=== PATIENT | male | born 1980 | race Hispanic/Latino ===

== ENCOUNTER 2022-12-03 10:47 | Inpatient (IN) | payer OTHER ==
[~2022-12-03] VITALS: Ht 177.8 cm; Wt 113.4 kg
[2022-12-03 11:12] LABS: APPEARANCE,URINE CLEAR (CLEAR); BILIRUBIN,URINE NEGATIVE (NEGATIVE); COLOR,URINE YELLOW (YELLOW); GLUCOSE, URINE (UA) NEGATIVE (NEGATIVE); KETONES,URINE NEGATIVE (NEGATIVE); LEUKOCYTE ESTERASE ,URINE NEGATIVE Leu/uL (NEGATIVE); NITRATE,URINE NEGATIVE (NEGATIVE); OCCULT BLOOD,URINE NEGATIVE (NEGATIVE); PROTEIN,URINE 20 mg/dL (NEGATIVE); UROBILINOGEN,URINE 12 mg/dL (0.2-1.0)
[2022-12-03 11:15] LABS: MUCUS,URINE RARE LPF (None Seen); RBC,URINE 0-1 /HPF (0-1); SQUAMOUS EPITHELIAL CELL,UR RARE /HPF (0-2)
[2022-12-03 11:55] LABS: BASOPHILS % (AUTO) 0.8 % (0.0-5.0); EOSINOPHILS % (AUTO) 2.4 % (0.0-8.0); HEMATOCRIT 43.9 % (42-54); LYMPHOCYTES % (AUTO) 19.9 % (21.0-51.0); MEAN CORPUSCULAR HEMOGLOBIN 32.1 pg (27.0-33.0); MEAN CORPUSCULAR HGB CONC 33.5 g/dL (32.0-36.0); MEAN CORPUSCULAR VOLUME 95.9 fL (79-99); MONOCYTES % (AUTO) 9.1 % (3.0-13.0); NEUTROPHILS % (AUTO) 67.5 % (40.0-77.0); PLATELET COUNT (AUTO) 181 K/uL (130-400); RED BLOOD CELL COUNT(AUTO) 4.58 MIL/uL (4.50-6.20); RED CELL DISTRIBUTION WIDTH 13.3 % (11.0-15.5); WHITE BLOOD COUNT (AUTO) 7.9 K/uL (4.8-10.8)
[2022-12-03 12:13] LABS: CREATININE 0.8 mg/dL (0.5-1.5); POTASSIUM 4.1 mmol/L (3.5-5.1)
[2022-12-03 12:17] LABS: ALBUMIN 3.9 g/dL (3.5-5.0); TOTAL PROTEIN, SERUM 8.5 g/dL (6.0-8.3)
[2022-12-03] MEDS ORDERED: 0.9%NACL 1000ML 1,000 ML IV ONE (12:30)
[2022-12-03] MEDS ORDERED: IOHEXOL 350 MG/ML 100ML INFUS..BTL IV ONE (13:06)
[2022-12-03] MEDS ORDERED: 0.9%NACL 50ML IV SCH (14:30)
[2022-12-03] MEDS: ZOSYN 3.375GM +NS 50ML IVPB SCH ×2 (14:37→23:00)
[2022-12-03] MEDS ORDERED: KETOROLAC 15MG/ML VIAL (15MG/ML) IV PRN (15:00)
[2022-12-03] MEDS ORDERED: MORPHINE 2 MG SYG IVP PRN (15:00)
[2022-12-03 15:08] LABS: HEMOGLOBIN A1C 5.9 % (4.0-6.0)
[2022-12-03] MEDS: 0.9%NACL 1000ML 1,000 ML IV SCH (15:11)
[2022-12-03] MEDS: FAMOTIDINE 20MG VIAL IV SCH (20:58)
[2022-12-03 22:26] LABS: AMPHET/METH SCREEN,URINE NEGATIVE (NEGATIVE); BARBITURATE SCREEN, URINE NEGATIVE (NEGATIVE); BENZODIAZEPINES SCREEN,URINE NEGATIVE (NEGATIVE); CANNABINOID SCREEN,URINE POSITIVE (NEGATIVE); COCAINE SCREEN,URINE NEGATIVE (NEGATIVE); OPIATE SCREEN,URINE NEGATIVE (NEGATIVE); PHENCYCLIDINE SCREEN,URINE NEGATIVE (NEGATIVE)
[2022-12-04] MEDS: 0.9%NACL 1000ML 1,000 ML IV SCH ×3 (01:00→22:32)
[2022-12-04 03:22] VITALS: BP 123/65
[2022-12-04 05:16] LABS: BASOPHILS % (AUTO) 0.7 % (0.0-5.0); EOSINOPHILS % (AUTO) 2.8 % (0.0-8.0); HEMATOCRIT 41.1 % (42-54); LYMPHOCYTES % (AUTO) 22.5 % (21.0-51.0); MEAN CORPUSCULAR HEMOGLOBIN 32.6 pg (27.0-33.0); MEAN CORPUSCULAR HGB CONC 33.3 g/dL (32.0-36.0); MEAN CORPUSCULAR VOLUME 97.9 fL (79-99); MONOCYTES % (AUTO) 9.3 % (3.0-13.0); NEUTROPHILS % (AUTO) 64.6 % (40.0-77.0); PLATELET COUNT (AUTO) 159 K/uL (130-400); RED CELL DISTRIBUTION WIDTH 13.1 % (11.0-15.5); WHITE BLOOD COUNT (AUTO) 6.9 K/uL (4.8-10.8)
[2022-12-04 05:37] LABS: CREATININE 0.9 mg/dL (0.5-1.5); CRP QUANTITATIVE 36.4 mg/L (0.00-9.0); POTASSIUM 3.9 mmol/L (3.5-5.1)
[2022-12-04] MEDS: ZOSYN 3.375GM +NS 50ML IVPB SCH ×3 (06:22→22:30)
[2022-12-04 08:00] VITALS: BP 107/71
[2022-12-04] MEDS: FAMOTIDINE 20MG VIAL IV SCH ×2 (08:22→22:17)
[2022-12-04] MEDS ORDERED: CHLORDIAZEPOXIDE HCL 25 MG CAP PO PRN (11:30)
[2022-12-04] MEDS ORDERED: LORAZEPAM 2 MG/ML 1 ML VIAL IVP PRN (11:30)
[2022-12-04] MEDS ORDERED: PHARMACY COMMUNICATION MISC PRN (11:30)
[2022-12-04] MEDS: FLUCONAZOLE 200 MG/NS 100 ML 100 ML IV SCH (11:42)
[2022-12-04 12:02] VITALS: BP 145/76
[2022-12-04 16:00] VITALS: BP 123/78
[2022-12-04 19:59] VITALS: BP 144/82
[2022-12-05] VITALS (7 sets, daily range): BP systolic 120–145; BP diastolic 64–85
[2022-12-05 05:47] LABS: BASOPHILS % (AUTO) 0.8 % (0.0-5.0); EOSINOPHILS % (AUTO) 3.7 % (0.0-8.0); HEMATOCRIT 42.3 % (42-54); LYMPHOCYTES % (AUTO) 27.9 % (21.0-51.0); MEAN CORPUSCULAR HEMOGLOBIN 32.5 pg (27.0-33.0); MEAN CORPUSCULAR HGB CONC 33.6 g/dL (32.0-36.0); MEAN CORPUSCULAR VOLUME 96.8 fL (79-99); NEUTROPHILS % (AUTO) 57.6 % (40.0-77.0); PLATELET COUNT (AUTO) 163 K/uL (130-400); RED BLOOD CELL COUNT(AUTO) 4.37 MIL/uL (4.50-6.20); RED CELL DISTRIBUTION WIDTH 12.6 % (11.0-15.5); WHITE BLOOD COUNT (AUTO) 6.4 K/uL (4.8-10.8)
[2022-12-05 06:09] LABS: ALBUMIN 3.3 g/dL (3.5-5.0); CRP QUANTITATIVE 22.7 mg/L (0.00-9.0); MAGNESIUM 2.3 mg/dL (1.80-2.40); TOTAL PROTEIN, SERUM 7.7 g/dL (6.0-8.3)
[2022-12-05] MEDS: ZOSYN 3.375GM +NS 50ML IVPB SCH ×3 (06:38→22:48)
[2022-12-05] MEDS: 0.9%NACL 1000ML 1,000 ML IV SCH ×2 (06:44→17:02)
[2022-12-05] MEDS: FAMOTIDINE 20MG VIAL IV SCH ×2 (08:27→21:55)
[2022-12-05] MEDS: FLUCONAZOLE 200 MG/NS 100 ML 100 ML IV SCH (12:01)
[2022-12-05] MEDS: HEPARIN 5,000 UNIT VIAL SQ SCH (22:48)
[2022-12-06 03:54] VITALS: BP 126/66
[2022-12-06] MEDS: 0.9%NACL 1000ML 1,000 ML IV SCH (04:03)
[2022-12-06 05:14] LABS: BASOPHILS % (AUTO) 1.1 % (0.0-5.0); HEMATOCRIT 40.8 % (42-54); LYMPHOCYTES % (AUTO) 33.3 % (21.0-51.0); MEAN CORPUSCULAR HEMOGLOBIN 32.5 pg (27.0-33.0); MEAN CORPUSCULAR HGB CONC 33.8 g/dL (32.0-36.0); MEAN CORPUSCULAR VOLUME 96.2 fL (79-99); MONOCYTES % (AUTO) 9.2 % (3.0-13.0); NEUTROPHILS % (AUTO) 52.1 % (40.0-77.0); PLATELET COUNT (AUTO) 183 K/uL (130-400); RED BLOOD CELL COUNT(AUTO) 4.24 MIL/uL (4.50-6.20); RED CELL DISTRIBUTION WIDTH 12.8 % (11.0-15.5); WHITE BLOOD COUNT (AUTO) 6.6 K/uL (4.8-10.8)
[2022-12-06 05:27] LABS: CREATININE 1.1 mg/dL (0.5-1.5); MAGNESIUM 2.2 mg/dL (1.80-2.40); POTASSIUM 3.5 mmol/L (3.5-5.1)
[2022-12-06] MEDS: ZOSYN 3.375GM +NS 50ML IVPB SCH (06:20)
[2022-12-06] MEDS ORDERED: DIATR MEGLU/DIATRIZOATE SODIUM 30 ML BOTTLE ONE (07:29)
[2022-12-06 08:00] VITALS: BP 137/89
[2022-12-06] MEDS: HEPARIN 5,000 UNIT VIAL SQ SCH (09:51)
[2022-12-06] MEDS: FAMOTIDINE 20MG VIAL IV SCH (09:52)
[2022-12-06 12:00] VITALS: BP 139/86
[2022-12-06] MEDS: FLUCONAZOLE 200 MG/NS 100 ML 100 ML IV SCH (13:00)
[2022-12-06] MEDS ORDERED: IOHEXOL 350 MG/ML 100ML INFUS..BTL IV ONE (13:04)
== END 2022-12-06 16:55 | disposition left against medical advice (07) | DRG 379 ==
LOC: EDH 10:47 → EDHIP 10:48 → UNDOADMIN 14:41 → EDHIP 14:41 → 3CH 12-04 03:21
PROVIDERS: ADMIT Internal Medicine; ATTEND Internal Medicine
DX: K57.33 Diverticulitis of large intestine without perforation or abscess with bleeding (principal); E66.09 Other obesity due to excess calories; Z53.29 Procedure and treatment not carried out because of patient's decision for other reasons; Z68.35 Body mass index [BMI] 35.0-35.9, adult
CPT/HCPCS: 36415; 74021; 74177; 80048; 80053; 80305; 81001; 83036; 83690; 83735; 84145; 85025; 86140; G0378; J1450; J1644; J1885; J2543; J3490; J7030; Q9963; Q9967

== ENCOUNTER 2024-08-14 18:58 | Inpatient (IN) | payer SELFPAY ==
[~2024-08-14] VITALS: Ht 177.8 cm; Wt 106.1 kg
--- NOTE | 2024-08-14 19:35 | ERN ---
ED Note History of Present Illness Stated Complaint: ABDOMINAL PAIN Time Seen by MD: 18:59 Time Seen by Midlevel: 18:59 Dictation: The patient is a 43-year-old male with history of diverticulitis who presents to the emergency department with complaints of lower abdominal pain, nausea, nonbloody vomiting Tuesday. Patient denies any fevers but reports chills. Patient also reports occasional cough Allergies: Uncoded Allergies: UNKNOWN LIDOCAINE SPRAY (Allergy, Unknown, 12/03/22) Past Medical History Past Medical History: No Pertinent History Surgical History: None RN Note Reviewed/Agreed w/PFSH: Yes Review of System Dictation Constitutional: Negative for fever,chills, and weight loss Eyes: Negative for injury, pain,redness, and discharge ENT: Negative for injury,pain or swelling Cardiovascular: Negative for chest pain, palpitations, and edema Respiratory: Negative for shortness of breath, cough, and wheezing, Abdomen/GI: Negative for , and constipation positive for abdominal pain, nausea, vomiting, diarrhea Back: Negative for injury and pain : Negative for injury, bleeding and discharge MS/Extremity: Negative for injury and deformity Skin: Negative for rash, and discoloration Neuro: Negative for headache, weakness, numbness, tingling, and seizure Psych: Negative for suicide ideation, homicidal ideation, and hallucinations Initial Vital Sign VS Vital Signs Date Time Temp Pulse Resp B/P (MAP) Pulse Ox O2 Delivery O2 Flow Rate FiO2 08/14/24 19:48 98.2 110 20 114/83 97 Room Air 08/15/24 00:39 0 21 Physical Exam Dictation Vital Signs reviewed General Appearance: Alert, oriented x 3, no acute distress, well developed, nourished. Head and Face: non-traumatic. Eyes: PERRL, pink conjunctivas, eyelid no trauma, anterior chamber with arcus senilis. Ears: Pinnas intact and no signs of trauma or erythema ear canals clear and no discharge TM no erythema Nose: No discharge, no bleeding. Oropharynx: Mouth normal, tongue pink. pharynx clear,no erythema, tonsils no exudates, no abscesses noted, mucous membrane moist Neck: Supple, non-tender, no thyromegaly, no masses, no JVD, no bruits Breast:Deferred Chest:No tenderness, no crepitus, no paradoxical movement, no retractions Lungs:Clear, well-ventilated, symmetric, no rales, no wheezing, no rhonchi, no stridor, good breath sounds bilaterally Heart: Regular rate, regular rhythm, no murmur, no gallops Vascular: no peripheral edema, Abdomen: Soft, positive bowel sounds, nondistended, no guarding, Suprapubic tenderness no rebound, no masses no hepatomegaly, no splenomegaly, no Mora's sign, no hernias. Rectal: Deferred Genital: Deferred Neurological: Normal speech, motor function intact, sensory function intact Musculoskeletal: Neck nontender, full range of motion, back nontender, full range of motion, Extremities: nontender, full range of motion Skin: Color pink, dry, no turgor, no rash, no lacerations, no abrasions, no contusions. Lymphatic: Deferred Results (Laboratory/Radiology) Laboratory/Radiology Laboratory Tests Test 08/14/24 20:28 08/15/24 00:24 08/15/24 02:11 White Blood Count 9.2 K/uL (4.8-10.8) Red Blood Count 4.90 MIL/uL (4.50-6.20) Hemoglobin 15.9 g/dL (14.0-18.0) Hematocrit 45.8 % (42-54) Mean Corpuscular Volume 93.5 fL (79-99) Mean Corpuscular Hemoglobin 32.4 pg (27.0-33.0) Mean Corpuscular Hemoglobin Concent 34.7 g/dL (32.0-36.0) Red Cell Distribution Width 13.7 % (11.0-15.5) Platelet Count 195 K/uL (130-400) Mean Platelet Volume 11.3 fL (7.5-10.5) H Immature Granulocyte % (Auto) 0.5 % (0-1) Neutrophils (%) (Auto) 80.2 % (40.0-77.0) H Lymphocytes (%) (Auto) 10.0 % (21.0-51.0) L Monocytes (%) (Auto) 9.2 % (3.0-13.0) Eosinophils (%) (Auto) 0.0 % (0.0-8.0) Basophils (%) (Auto) 0.1 % (0.0-5.0) Neutrophils # (Auto) 7.4 K/uL (1.8-7.7) Lymphocytes # (Auto) 0.9 K/uL (1.0-4.8) L Monocytes # (Auto) 0.8 K/uL (0.1-1.0) Eosinophils # (Auto) 0.00 K/uL (0.00-0.70) Basophils # (Auto) 0.01 K/uL (0.00-0.20) Absolute Immature Granulocyte (auto 0.05 K/uL (0-1) Nucleated Red Blood Cells 0.0 % (0.0-0.19) White Cell Morphology Comment See comments Sodium Level 127 mmol/L (136-145) L Potassium Level 3.4 mmol/L (3.5-5.1) L Chloride Level 90 mmol/L (101-111) *L Carbon Dioxide Level 25 mmol/L (21-32) Blood Urea Nitrogen 24 mg/dL (7-18) H Creatinine 1.4 mg/dL (0.5-1.3) H Glomerular Filtration Rate Calc 65 mL/min (>90) Random Glucose 115 mg/dL (70-105) H Total Calcium 9.3 mg/dL (8.5-10.1) Total Bilirubin 1.1 mg/dL (0.2-1.0) H Direct Bilirubin 0.4 mg/dL (0.0-0.3) H Aspartate Amino Transf (AST/SGOT) 34 U/L (10-37) Alanine Aminotransferase (ALT/SGPT) 35 U/L (12-78) Alkaline Phosphatase 123 U/L (50-136) Total Protein 9.9 g/dL (6.0-8.3) H Albumin 3.8 g/dL (3.5-5.0) Lipase 34 U/L (16-77) Influenza Type A Antigen Negative For Type A Influenza Type B Antigen Negative For Type B SARS-CoV-2 Antigen (Rapid) PRESUMPTIVE NEGATIVE Lactic Acid Level 1.1 mmol/L (0.8-2.5) REASON: lower abd pain ORDERING PHYSICIAN: STAN RODRIGUEZ PROCEDURE: ABD PEL W - CT ABDOMEN/PELVIS W/CONTRAST CT ABDOMEN/PELVIS W/CONTRAST HISTORY: Lower abdominal pain COMPARISON: 12/06/2022 TECHNIQUE: Multiple sequential axial images of the abdomen and pelvis were obtained from the dome of the diaphragm through symphysis pubis. Patient was given 100 cc of Omnipaque through intravenous route. Oral contrast was not given. FINDINGS: No pleural effusion is seen bilaterally. There is no evidence of parenchymal disease or pulmonary nodule of the visualized lower lungs. Degenerative changes of the thoracolumbar spine are present. The heart is not enlarged. Liver is enlarged with fatty changes measuring 21 cm. The liver, spleen, adrenal glands and pancreas are unremarkable. There is no evidence of hydronephrosis bilaterally. No evidence of renal stone is seen. There is diverticulosis. There is sigmoid colon wall thickening with adjacent fat stranding suspicious for acute diverticulitis. Extensive phlegmon collection is seen. There may be small abscess collection versus walled off perforation in the pelvis measuring 4.4 x 4.3 cm. Fecal material is seen in the colon. There are normal size retroperitoneal and mesenteric lymph nodes. No ascites is seen. Atherosclerotic changes are present. Pelvic sidewalls are symmetric bilaterally. Bladder is moderately distended with apparent wall thickening. IMPRESSION: 1. There is diverticulosis. There is sigmoid colon wall thickening with adjacent fat stranding suspicious for acute diverticulitis. Extensive phlegmon collection is seen. There may be small abscess collection versus walled off perforation with tiny air collection in the pelvis measuring 4.[address] was performed with one or more following dose reduction techniques: automated exposure control, adjustment of the mA and kv according to patient's size, or use of a iterative reconstruction technique. REASON: cough ORDERING PHYSICIAN: STAN RODRIGUEZ PROCEDURE: CXR1VW - CHEST 1VW PORTABLE CHEST RADIOGRAPH INDICATION: cough COMPARISON: 07/31/2013 FINDINGS: Heart size is normal. The pulmonary vascularity and olesya appear normal. No abnormal pulmonary parenchymal opacity or consolidation identified. No significant pleural effusion noted. No pneumothorax detected. IMPRESSION: No radiographic evidence for any acute cardiopulmonary process. Labs Reviewed?: Yes ED Course ED Course Orders Procedure Category Date Status Time Cbc With Differential LAB 08/14/24 Complete 19:28 Urinalysis Profile LAB 08/14/24 Logged 19:28 Lipase LAB 08/14/24 Complete 19:28 Basic Metabolic Panel LAB 08/14/24 Complete 19:28 Hepatic Function Panel LAB 08/14/24 Complete 19:28 0.9%Nacl 1000ml (Ns PHA 08/14/24 Complete 1000ml) 19:30 Morphine 4mg Syg PHA 08/14/24 Complete (Morphine 4mg Syg) 19:30 Ondansetron 4mg Inj PHA 08/14/24 Complete (Zofran 4mg Inj) 19:30 Chest 1vw RAD 08/14/24 Resulted 19:28 Covid19 (Sars Antigen LAB 08/14/24 Complete Rapid) 19:28 Influenza Type A & B, LAB 08/14/24 Complete Rapid 19:28 Ct Abdomen/Pelvis CT 08/14/24 Resulted W/Contrast 21:13 Ondansetron 4mg Inj PHA 08/15/24 Complete (Zofran 4mg Inj) 00:23 0.9%Nacl 1000ml (Ns PHA 08/15/24 Complete 1000ml) 00:23 Morphine 4mg Syg PHA 08/15/24 Complete (Morphine 4mg Syg) 00:24 Iohexol (Omnipaque) PHA 08/15/24 Complete 01:14 Blood Cult MARK 08/15/24 In Process 02:03 Lactic Acid LAB 08/15/24 Complete 02:03 Zosyn 3.375gm+Ns 50ml PHA 08/15/24 Complete (Zosyn 3.375gm+Ns 02:30 Vancomycin 1g/250ml PHA 08/15/24 Complete Kit (Vancomycin 1g/2 02:30 Current Medications Medications (Trade) Dose Ordered Sig/Bernarda Route PRN Reason Start Time Stop Time Status Last Admin Dose Admin Iohexol (Omnipaque) 35,000 mg STK-MED ONCE IV 08/15/24 01:14 08/15/24 01:14 DC Morphine Sulfate (morPHINE 4MG SYG) 4 mg ONCE ONCE IVP 08/14/24 19:30 08/14/24 19:31 DC 08/15/24 00:39 Morphine Sulfate (morPHINE 4MG SYG) 4 mg STK-MED ONCE .ROUTE 08/15/24 00:24 08/15/24 00:24 DC Ondansetron HCl (zoFRAN 4MG INJ) 4 mg ONCE ONCE IVP 08/14/24 19:30 08/14/24 19:31 DC 08/15/24 00:39 Ondansetron HCl (zoFRAN 4MG INJ) 4 mg STK-MED ONCE .ROUTE 08/15/24 00:23 08/15/24 00:24 DC Piperacillin Sod/ Tazobactam Sod (Zosyn 3.375gm+NS 50ml) 3.375 gm ONCE ONCE IV 08/15/24 02:30 08/15/24 02:31 DC 08/15/24 02:22 Sodium Chloride 1,000 ml @ 0 mls/hr ONCE ONCE IV 08/14/24 19:30 08/14/24 19:31 DC 08/15/24 00:39 Sodium Chloride 1,000 ml @ As Directed STK-MED ONCE IV 08/15/24 00:23 08/15/24 00:24 DC Vancomycin HCl 250 ml @ 125 mls/hr ONCE ONCE IV 08/15/24 02:30 08/15/24 02:16 DC Vital Signs Date Time Temp Pulse Resp B/P (MAP) Pulse Ox O2 Delivery O2 Flow Rate FiO2 08/15/24 02:26 99.3 96 Room Air* 0 21 08/15/24 01:40 92 20 129/85 95 Room Air* 0 21 08/15/24 00:39 100.2 96 18 113/82 96 Room Air* 0 21 08/14/24 19:48 98.2 110 20 114/83 97 Room Air Medical Decision Making MDM MDM: The patient is a 43-year-old male with history of diverticulitis who presents to the emergency department with complaints of lower abdominal pain, nausea, nonbloody vomiting Tuesday. Patient denies any fevers but reports chills. Patient also reports occasional cough CBC showed no leukocytosis, no anemia, chemistry showed hyponatremia, hypochloremia, hypokalemia, GFR of 65, elevated total bilirubin, serology negative. CT abdomen showed suspicion for acute diverticulitis. Extensive phlegmon collection is seen with possible small abscess collection versus while the perforation with tiny air collection in the pelvis measuring 4.4 x 4.3 cm. Case discussed with general surgery Dr. Aaron who with the time request for admission to hospital in start patient on antibiotics. Differential diagnosis: Viral gastroenteritis, COVID-19 infection, appendicitis, electrolyte imbalance Comorbidities: Diverticulitis Tests considered and not ordered secondary to shared decision making include: none Previous outside records reviewed: none Risk of complication and/or morbidity or mortality of patient management: The patient meets criteria for admission. Need for emergency major/minor surgery: No There are no social concerns with this patient. I independently interpreted the tests I ordered (labs, urinalysis, etc.). I discussed the case with the hospitalist for admission. Tobias who accepts admission I discussed the case with the following specialists: Historian: pateint. I independently interpreted imaging studies and EKGs that I ordered (US, CT, XR, EKG, etc.). External chart review: none. Medical management and examination interpretation discussions were had by me with other qualified healthcare professionals as indicated for the patient's c are. DX & DISP Disposition: Inpatient Decision to Admit Date: Aug 15, 2024 Decision to Admit Time: 02:59 Departure Impression: Primary Impression: Diverticulitis Additional Impressions: Abdominal pain, Nausea and vomiting, Hyponatremia, Hypochloremia, Acute kidney injury, Dehydration Condition: Stable Referrals: SELF,REFERRAL (PCP) I have reviewed the case, and I agree with, Diagnosis and Plan STAN RODRIGUEZ ASSISTANT SPA DIRECTOR Aug 14, 2024 19:35
--- NOTE | 2024-08-14 19:59 | HMCIMG ---
PORTABLE CHEST RADIOGRAPH INDICATION: cough COMPARISON: 07/31/2013 FINDINGS: Heart size is normal. The pulmonary vascularity and olesya appear normal. No abnormal pulmonary parenchymal opacity or consolidation identified. No significant pleural effusion noted. No pneumothorax detected. IMPRESSION: No radiographic evidence for any acute cardiopulmonary process.
[2024-08-14 20:51] LABS: BASOPHILS # (AUTO) 0.01 K/uL (0.00-0.20); BASOPHILS % (AUTO) 0.1 % (0.0-5.0); HEMATOCRIT 45.8 % (42-54); IMMATURE GRANULOCYTE ABSOLUTE 0.05 K/uL (0-1); LYMPHOCYTES # (AUTO) 0.9 K/uL (1.0-4.8); MEAN CORPUSCULAR HEMOGLOBIN 32.4 pg (27.0-33.0); MEAN CORPUSCULAR HGB CONC 34.7 g/dL (32.0-36.0); MEAN CORPUSCULAR VOLUME 93.5 fL (79-99); MONOCYTES # (AUTO) 0.8 K/uL (0.1-1.0); MONOCYTES % (AUTO) 9.2 % (3.0-13.0); NEUTROPHILS # (AUTO) 7.4 K/uL (1.8-7.7); NEUTROPHILS % (AUTO) 80.2 % (40.0-77.0); PLATELET COUNT (AUTO) 195 K/uL (130-400); RED CELL DISTRIBUTION WIDTH 13.7 % (11.0-15.5); WHITE BLOOD COUNT (AUTO) 9.2 K/uL (4.8-10.8)
[2024-08-14 21:07] LABS: ALBUMIN 3.8 g/dL (3.5-5.0); BILIRUBIN,DIRECT 0.4 mg/dL (0.0-0.3); BILIRUBIN,TOTAL 1.1 mg/dL (0.2-1.0); CREATININE 1.4 mg/dL (0.5-1.3); POTASSIUM 3.4 mmol/L (3.5-5.1); TOTAL PROTEIN, SERUM 9.9 g/dL (6.0-8.3)
--- NOTE | 2024-08-15 00:20 | NUR ---
ASSUMED PT CARE AT THIS TIME
[2024-08-15] MEDS: 0.9%NACL 1000ML 1,000 ML IV ONE ×2 (00:39→01:47)
[2024-08-15] MEDS: ondanSETRON 4MG INJ IVP ONE (00:39)
[2024-08-15] MEDS: morPHINE 4 MG SYG IVP ONE (00:39)
[2024-08-15 01:14] LABS: INFLUENZA TYPE A Negative For Type A (NEGATIVE); INFLUENZA TYPE B Negative For Type B (NEGATIVE)
[2024-08-15] MEDS ORDERED: IOHEXOL 350 MG/ML 100ML INFUS..BTL IV ONE (01:14)
[2024-08-15 01:15] LABS: COVID19 (SARS ANTIGEN RAPID) PRESUMPTIVE NEGATIVE (NEGATIVE)
[2024-08-15] MEDS: ondanSETRON 4MG INJ ONE (01:47)
[2024-08-15] MEDS: morPHINE 4 MG SYG ONE (01:47)
--- NOTE | 2024-08-15 01:54 | HMCIMG ---
CT ABDOMEN/PELVIS W/CONTRAST HISTORY: Lower abdominal pain COMPARISON: 12/06/2022 TECHNIQUE: Multiple sequential axial images of the abdomen and pelvis were obtained from the dome of the diaphragm through symphysis pubis. Patient was given 100 cc of Omnipaque through intravenous route. Oral contrast was not given. FINDINGS: No pleural effusion is seen bilaterally. There is no evidence of parenchymal disease or pulmonary nodule of the visualized lower lungs. Degenerative changes of the thoracolumbar spine are present. The heart is not enlarged. Liver is enlarged with fatty changes measuring 21 cm. The liver, spleen, adrenal glands and pancreas are unremarkable. There is no evidence of hydronephrosis bilaterally. No evidence of renal stone is seen. There is diverticulosis. There is sigmoid colon wall thickening with adjacent fat stranding suspicious for acute diverticulitis. Extensive phlegmon collection is seen. There may be small abscess collection versus walled off perforation in the pelvis measuring 4.4 x 4.3 cm. Fecal material is seen in the colon. There are normal size retroperitoneal and mesenteric lymph nodes. No ascites is seen. Atherosclerotic changes are present. Pelvic sidewalls are symmetric bilaterally. Bladder is moderately distended with apparent wall thickening. IMPRESSION: 1. There is diverticulosis. There is sigmoid colon wall thickening with adjacent fat stranding suspicious for acute diverticulitis. Extensive phlegmon collection is seen. There may be small abscess collection versus walled off perforation with tiny air collection in the pelvis measuring 4.[address] was performed with one or more following dose reduction techniques: automated exposure control, adjustment of the mA and kv according to patient's size, or use of a iterative reconstruction technique.
[2024-08-15] MEDS: ZOSYN 3.375GM +NS 50ML IV ONE (02:22)
[2024-08-15] MEDS ORDERED: VANCOMYCIN 1G/250ML KIT 250 ML IV ONE (02:30)
--- NOTE | 2024-08-15 02:50 | NUR ---
GLENNY HONING MACHINE SET UP OPERATOR TOOL AT BEDSIDE
[2024-08-15] MEDS ORDERED: ondanSETRON 4MG INJ IV PRN (03:30)
[2024-08-15] MEDS ORDERED: acetaMINOPHEN 650 MG SUPPOSITORY RC PRN (03:30)
[2024-08-15] MEDS ORDERED: hydrALAZine 20MG/ML VIAL IV PRN (03:30)
--- NOTE | 2024-08-15 03:31 | HP ---
History of Present Illness Reason for Visit: Abdominal pain History of Present Illness Mr. Pate is a 43-year-old male that was seen and examined today on 08/15/2024. Patient is a good historian and personal health. Patient states that he came to the emergency department with a chief complaint of abdominal pain. Onset was 08/12/2024. Location is to bilateral lower quadrants. Duration is on and off. Character is described as sharp pain. Symptoms are aggravated with coughing. There was no alleviating factors. Patient reports associated nausea, vomiting, diarrhea. Today in the emergency department CBC unremarkable, sodium 127, potassium 3.4, chloride 90, BUN 24, creatinine 1.4, influenza negative, COVID negative, CT of abdomen and pelvis shows diverticulosis, there is sigmoid colon wall thickening with adjacent fat stranding suspicious for acute diverticulitis. Extensive phlegmon collection is seen. There may be a small abscess collection versus walled-off perforation with tiny air collection in the pelvis measuring 4.4 x 4.3 cm. Emergency room physician contacted general surgeon on-call who recommended patient be admitted under hospitalist service. Past Medical History Patient History: Asthma SON, Onset:Childhood ADDITIONAL PAST MEDICAL HISTORY: [Denies] SOCIAL HISTORY: [Negative for smoking, patient drinks alcohol 2 times a week usually two beers that are 24 oz each. Patient denies drug use. Patient lives with his mom Alison Pate. Patient has poor access to health care due to lack of health insurance. Patient denies difficulty pain is bills. Patient is typically independent of all his ADLs. 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 Dyspnea, Edema, Lt Headedness, Other Gastrointestinal: Nausea, Vomiting, Abdominal Pain, Diarrhea; No: Constipation, Melena, Hematochezia, Other Genitourinary: No Dysuria, No Frequency, No Incontinence, No Hematuria, No Retention, No Other Musculoskeletal: No: other, neck pain, shoulder pain, arm pain, back pain, hand pain, leg pain, foot pain Skin: No Urticaria, No Rash, No Other Neurological: No: Weakness, Numbness, Incoordination, Change in speech, Confusion, Seizures, Other Allergies: Uncoded Allergies: UNKNOWN LIDOCAINE SPRAY (Allergy, Unknown, 12/03/22) Exam Vital Signs Vital Signs Date Time Temp Pulse Resp B/P (MAP) Pulse Ox O2 Delivery O2 Flow Rate FiO2 08/15/24 02:26 99.3 96 Room Air* 0 21 08/15/24 01:40 92 20 129/85 General Appearance: Alert, Oriented X3, Cooperative, mild distress HEENT: Atraumatic, PERRLA, EOMI Respiratory: Clear to auscultation, Normal air movement, NL respiratory effort Cardiovascular: Regular rate, Regular rhythm, Normal S1, Normal S2 Abdominal: Normal bowel sounds, Soft, No tenderness Extremities: No edema Skin: No significant lesion Neuro: Normal speech, Strength at 5/5 X4 ext, Sensation intact, Cranial nerves 3-12 NL Psych/Mental Status: Mental status NL, Mood NL, Thoughts/Content NL Assessment/Plan ASSESSMENT: [ Suspected acute diverticulitis, POA, by CT on 08/15/2024 ABE, POA Hypokalemia, POA PLAN: [ Admit patient to medical floor as inpatient status. Patient will be followed by General surgery Service. Keep patient NPO. IV fluid maintenance therapy lactated Ringer's 75 mL/HR. As needed analgesia with morphine. Check preprocedure labs, CBC, BMP, magnesium, phosphorus, PTT, UA, type and screen, EKG, CXR Empiric antibiotic therapy with Zosyn Calculate FENA Check urine sodium, creatinine, osmolality Avoid nephrotoxic agents when possible Renally dose all medications when possible Consider consulting Nephrology service if any worsening renal function or evidence of ATN. Monitor patient's labs. Weight patient daily. Monitor intake and output. Replace potassium per hospital protocol GI prophylaxis, Protonix DVT prophylaxis, Preston's and SCDs ADVANCED CARE PLANNING 1. Which of the following were discussed? Hospice Care - Yes Therapeutic options - Yes Advance Directives - Yes - patient states he does not have any advance directives in place at this time, however his mother can make decisions for him if he becomes unable. Other discussions - patient wishes to remain a full code at this time 2. Discussed with who? Patient 3. Voluntary nature of this service was explained to the patient? Yes 4. Amount of time spent - ___ 16 minutes ____ 5. Reviewed by Physician? (if this service was performed by NPP) Yes This document was generated in part using voice recognition software, occasional wrong word or sound alike substitutions may have occurred due to the inherent limitations of voice recognition software. Read the chart carefully and rec ognize using context, where the substitutions have occurred. Although every effort was made to edit the content, police patrol officer and typing errors may occur ATTESTATION BY PHYSICIAN I have seen and examined the patient. I reviewed the documentation, medical decision making, and treatment plan as noted by the mid-level provider above. I agree with the findings and plan of care. KAILEE MURRIETA [facility] Aug 15, 2024 03:31
[2024-08-15] MEDS: PoTASSium chloRIDE 20MEQ/100ML 100 ML IV PRN ×2 (03:58→22:03)
[2024-08-15] MEDS: LACTATED RINGERS 1000ML 1,000 ML IV SCH (03:59)
[2024-08-15 04:37] LABS: APPEARANCE,URINE CLEAR (CLEAR); BILIRUBIN,URINE NEGATIVE (NEGATIVE); COLOR,URINE YELLOW (YELLOW); GLUCOSE, URINE (UA) NEGATIVE (NEGATIVE); KETONES,URINE 10 mg/dL (NEGATIVE); LEUKOCYTE ESTERASE ,URINE NEGATIVE Leu/uL (NEGATIVE); NITRATE,URINE NEGATIVE (NEGATIVE); OCCULT BLOOD,URINE SMALL (NEGATIVE); PROTEIN,URINE 70 mg/dL (NEGATIVE); UROBILINOGEN,URINE 0.2 mg/dL (0.2-1.0)
[2024-08-15 04:38] LABS: CREATININE,URINE RANDOM 103.31 mg/dL (30-135)
[2024-08-15 04:41] LABS: ADD UA MICROSCOPIC YES
[2024-08-15 04:42] LABS: BACTERIA,URINE RARE /HPF (None Seen); MUCUS,URINE RARE LPF (None Seen); SQUAMOUS EPITHELIAL CELL,UR RARE /HPF (0-2)
[2024-08-15 07:15] LABS: BASOPHILS # (AUTO) 0.01 K/uL (0.00-0.20); BASOPHILS % (AUTO) 0.1 % (0.0-5.0); HEMATOCRIT 40.7 % (42-54); IMMATURE GRANULOCYTE ABSOLUTE 0.04 K/uL (0-1); LYMPHOCYTES # (AUTO) 1.2 K/uL (1.0-4.8); LYMPHOCYTES % (AUTO) 16.1 % (21.0-51.0); MEAN CORPUSCULAR HEMOGLOBIN 32.9 pg (27.0-33.0); MEAN CORPUSCULAR HGB CONC 34.9 g/dL (32.0-36.0); MEAN CORPUSCULAR VOLUME 94.2 fL (79-99); MONOCYTES # (AUTO) 0.8 K/uL (0.1-1.0); MONOCYTES % (AUTO) 10.4 % (3.0-13.0); NEUTROPHILS # (AUTO) 5.5 K/uL (1.8-7.7); NEUTROPHILS % (AUTO) 72.9 % (40.0-77.0); PLATELET COUNT (AUTO) 175 K/uL (130-400); RED BLOOD CELL COUNT(AUTO) 4.32 MIL/uL (4.50-6.20); RED CELL DISTRIBUTION WIDTH 13.8 % (11.0-15.5); WHITE BLOOD COUNT (AUTO) 7.5 K/uL (4.8-10.8)
[2024-08-15 07:23] LABS: INR 0.97 (0.85-1.15); PROTHROMBIN TIME 10.9 SEC (9.6-11.6)
[2024-08-15 07:26] LABS: MAGNESIUM 2.5 mg/dL (1.80-2.40); PHOSPHORUS 3.1 mg/dL (2.5-4.9); POTASSIUM 3.2 mmol/L (3.5-5.1)
--- NOTE | 2024-08-15 07:44 | EKG ---
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
--- NOTE | 2024-08-15 08:49 | PN ---
[facility] PROGRESS NOTE Date of Service: Aug 15, 2024 Time of Service: 08:42 SUBJECTIVE: [ ] This is a 43-year-old male was admitted yesterday 08/14/2024 presents in ER with chief complaints of abdominal pain. ER workup showed diverticulosis there is a sigmoid colon wall thickening with adjustment fat stranding suspicious for acute diverticulitis. General surgeon was consulted we will follow recommendation patient is currently on IV antibiotics IV fluids and pain management. Patient remains in ED holding patient is fully awake alert oriented x3. REVIEW OF SYSTEMS CONSTITUTIONAL: Denies fevers, chills, or night sweats. No unintentional weight loss reported. NEUROLOGICAL: Denies headache, amaurosis fugax, motor weakness, sensory deficit, vertigo/spinning sensation, gait abnormalities, or tremors. ENT: No hearing loss, otalgia, otorrhea, rhinitis, rhinorrhea, hoarseness, or sore throat. CARDIOVASCULAR: Denies any exertional angina, dyspnea on exertion, orthopnea, paroxysmal nocturnal dyspnea, palpitations, life-threatening arrhythmias, claudication. PULMONARY: Denies any shortness of breath, cough, phlegm/sputum, hemoptysis, pleuritic chest pain. SLEEP: Denies morning headaches, daytime somnolence or napping. Denies difficulty falling asleep, staying asleep, waking from sleep. Denies knowledge of snoring. GASTROINTESTINAL: Denies any type of dysphagia to either liquids or solids. Denies nausea, vomiting, pyrosis, early satiety, abdominal pain, diarrhea, constipation, or changes in stool consistency or caliber. Denies coffee-ground emesis, hematemesis, hematochezia, or melanotic stools. GENITOURINARY: Denies frequency, urgency, nocturia, hematuria or incontinence (Storage/Irritative symptoms.) Low urinary stream, straining to void, urinary intermittency or hesitancy, splitting of the voiding stream, terminal dribbling. ENDOCRINOLOGIC: Denies polyuria, polydipsia, polyphagia or heat/cold intolerances. HEMATOLOGIC: Denies thrombophilia/previous clots, or coagulopathy/bleeding di sorders. ONCOLOGIC: Denies personal history of malignancy. DERMATOLOGIC: Denies rashes or pruritus. PSYCHIATRIC: Denies any suicidal or homicidal ideation. Denies hallucinations. PHYSICAL EXAM GENERAL APPEARANCE: The patient is awake, alert, and oriented, in no acute cardiopulmonary distress. NEUROLOGICAL: Cranial nerves II-XII grossly intact. Motor is 5/5 in bilateral upper and lower extremities proximal to distal. No sensory deficits. HEENT: Face is symmetric. Pupils are equal and reactive. Extraocular movements are intact. NECK: Supple. No JVD. No thyromegaly. No submental, submandibular, pre- /postauricular, occipital or supraclavicular lymphadenopathy. CHEST: Normal chest expansion. No Telemetry. LUNGS: Absence of any rales, rhonchi or any wheezing. CARDIOVASCULAR: Regular. S1 and S2 normal. No appreciable rubs, murmurs or gallops. ABDOMEN: Soft, nontender, and nondistended. There is no rebound, voluntary guarding, or rigidity. : Deferred. No Velez. EXTREMITIES: Non-edematous and not cyanotic. No clubbing. Good capillary refill. SKIN: No skin breakdown. Vital Signs (last 8hr) Date Time Temp Pulse Resp B/P (MAP) Pulse Ox O2 Delivery O2 Flow Rate FiO2 08/15/24 04:51 99.3 90 20 113/81 96 Room Air* 0 21 08/15/24 02:26 99.3 96 Room Air* 0 21 08/15/24 01:40 92 20 129/85 95 Room Air* 0 21 LABS: Laboratory: Test 08/15/24 06:45 08/15/24 04:29 08/15/24 02:11 08/15/24 00:24 Range/Units White Blood Count 7.5 4.8-10.8 K/uL Red Blood Count 4.32 L 4.50-6.20 MIL/uL Hemoglobin 14.2 14.0-18.0 g/dL Hematocrit 40.7 L 42-54 % Mean Corpuscular Volume 94.2 79-99 fL Mean Corpuscular Hemoglobin 32.9 27.0-33.0 pg Mean Corpuscular Hemoglobin Concent 34.9 32.0-36.0 g/dL Red Cell Distribution Width 13.8 11.0-15.5 % Platelet Count 175 130-400 K/uL Mean Platelet Volume 10.6 H 7.5-10.5 fL Immature Granulocyte % (Auto) 0.5 0-1 % Neutrophils (%) (Auto) 72.9 40.0-77.0 % Lymphocytes (%) (Auto) 16.1 L 21.0-51.0 % Monocytes (%) (Auto) 10.4 3.0-13.0 % Eosinophils (%) (Auto) 0.0 0.0-8.0 % Basophils (%) (Auto) 0.1 0.0-5.0 % Neutrophils # (Auto) 5.5 1.8-7.7 K/uL Lymphocytes # (Auto) 1.2 1.0-4.8 K/uL Monocytes # (Auto) 0.8 0.1-1.0 K/uL Eosinophils # (Auto) 0.00 0.00-0.70 K/uL Basophils # (Auto) 0.01 0.00-0.20 K/uL Absolute Immature Granulocyte (auto 0.04 0-1 K/uL Nucleated Red Blood Cells 0.0 0.0-0.19 % Prothrombin Time 10.9 9.6-11.6 SEC Prothromb Time International Ratio 0.97 0.85-1.15 Activated Partial Thromboplast Time 33.0 26.3-35.5 SEC Sodium Level 132 L 136-145 mmol/L Potassium Level 3.2 L 3.5-5.1 mmol/L Chloride Level 97 L 101-111 mmol/L Carbon Dioxide Level 23 21-32 mmol/L Blood Urea Nitrogen 20 H 7-18 mg/dL Creatinine 1.0 0.5-1.3 mg/dL Glomerular Filtration Rate Calc 97 >90 mL/min Random Glucose 101 70-105 mg/dL Total Calcium 8.5 8.5-10.1 mg/dL Phosphorus Level 3.1 2.5-4.9 mg/dL Magnesium Level 2.50 H 1.80-2.40 mg/dL Urine Color YELLOW YELLOW Urine Appearance CLEAR CLEAR Urine pH 6.0 5.0-8.0 Urine Specific [place] 1.030 1.001-1.031 Urine Protein 70 H NEGATIVE mg/dL Urine Glucose (UA) NEGATIVE NEGATIVE mg/dL Urine Ketones 10 H NEGATIVE mg/dL Urine Occult Blood SMALL H NEGATIVE Urine Nitrate NEGATIVE NEGATIVE Urine Bilirubin NEGATIVE NEGATIVE mg/dL Urine Urobilinogen 0.2 0.2-1.0 mg/dL Urine Leukocyte Esterase NEGATIVE NEGATIVE Shweta/uL Urine RBC 2-5 H 0-1 /HPF Urine WBC 2-5 H 0-1 /HPF Urine Squamous Epithelial Cells RARE 0-2 /HPF Urine Bacteria RARE None Seen /HPF Urine Random Creatinine 103.31 30-135 mg/dL Urine Random Sodium 20 L 40-220 mmol/l Lactic Acid Level 1.1 0.8-2.5 mmol/L Influenza Type A Antigen Negative For Type A NEGATIVE Influenza Type B Antigen Negative For Type B NEGATIVE SARS-CoV-2 Antigen (Rapid) PRESUMPTIVE NEGATIVE NEGATIVE Test 08/14/24 20:28 Range/Units White Cell Morphology Comment See comments Total Bilirubin 1.1 H 0.2-1.0 mg/dL Direct Bilirubin 0.4 H 0.0-0.3 mg/dL Aspartate Amino Transf (AST/SGOT) 34 10-37 U/L Alanine Aminotransferase (ALT/SGPT) 35 12-78 U/L Alkaline Phosphatase 123 50-136 U/L Total Protein 9.9 H 6.0-8.3 g/dL Albumin 3.8 3.5-5.0 g/dL Lipase 34 16-77 U/L Current Medications Medications (Trade) Dose Ordered Sig/Bernarda Route PRN Reason Start Time Stop Time Status Last Admin Dose Admin Acetaminophen (TYLenol 650MG SUPPOSITORY) 650 mg Q6H PRN RC MILD PAIN (1-3) 08/15/24 03:30 09/14/24 03:29 Famotidine (Pepcid 20mg Vial) 20 mg DAILY IV 08/15/24 09:00 08/15/24 03:31 DC Hydralazine HCl (APRESOLine 20MG INJ) 10 mg Q6H PRN IV For:SBP above 160;DBP above 90 08/15/24 03:30 09/14/24 03:29 Lactated Ringer's 1,000 ml @ 75 mls/hr [id number] IV 08/15/24 03:30 09/14/24 03:29 08/15/24 03:59 75 MLS/HR Morphine Sulfate (morPHINE 4MG SYG) 4 mg Q4H PRN IVP SEVERE PAIN (7-10) 08/15/24 03:30 08/22/24 03:29 Ondansetron HCl (zoFRAN 4MG INJ) 4 mg Q6H PRN IV NAUSEA/VOMITING 08/15/24 03:30 09/14/24 03:29 Pantoprazole Sodium (PROTonix 40MG INJ) 40 mg DAILY IVP 08/15/24 09:00 09/14/24 08:59 Piperacillin Sod/ Tazobactam Sod (Zosyn 3.375gm+NS 50ml) 3.375 gm Q12H IV 08/15/24 14:30 08/25/24 14:29 Potassium Chloride 100 ml @ 50 mls/hr AD PRN IV POTASSIUM PROTOCOL 08/15/24 03:30 09/14/24 03:29 08/15/24 03:58 50 MLS/HR DIAGNOSTICS / RADIOLOGY: [ ] ASSESSMENT: acute diverticulitis, POA, by CT on 08/15/2024 Possible diverticular perforation with abscess POA intractable abd pain POA ABE, ATN POA Electrolyte derangement hypokalemia hyponatremia Obesity BMI 34.0 POA PLAN: [ ] Admit: Medical-surgical floor remains in ED holding condition: Guarded Status: Full code IVF: LR at 75 mL an hour Diet: NPO Consultants general surgeon, public health outreach worker's Antibiotics: Zosyn IV every 12hours renal dose, Test: will ordered renal sonogram Labs cbc, cmp, mag+ in am. Replace electrolytes as needed as per protocol to keep potassium above 4.0 magnesium 2.0. Avoid NSAIDs renal dose we will follow recommendations from public health outreach worker's. Home medications pending to be reviewed by RN nurse. PRN: MEDICATIONS Tylenol 650 mg po every 4 hrs for fever zofran 4 mg IV every 6 hrs for n/v Hydralazine 5 mg IV every 4 hrs systolic pressure > 160 bowel regiment: lactulose 20 gm PO BID PRN constipation Pain management: Morphine2 mg IV every 4 hours Supportive measures: DVT ppx, GI ppx all questions answered Supervising MD: Dr. Meyer P c/d This document was generated in part using voice recognition software, occasional wrong word or sound alike substitutions may have occurred due to the inherent limitations of voice recognition software. Read the chart carefully and recognize using context, where the substitutions have occurred. Although every effort was made to edit the content, shipping and receiving clerk and typing errors may occur ATTESTATION BY PHYSICIAN I have seen and examined the patient. I reviewed the documentation, medical decision making, and treatment plan as noted by the mid-level provider above. I agree with the findings and plan of care. Dayami Schreiber MD, ELIZABETH NP Aug 15, 2024 08:49
[2024-08-15] MEDS ORDERED: FAMOTIDINE 20MG VIAL IV SCH (09:00)
[2024-08-15] MEDS: morPHINE 4 MG SYG IVP PRN (09:21)
[2024-08-15] MEDS: PANTOPrazole 40 MG/VIAL IVP SCH (09:21)
--- NOTE | 2024-08-15 12:00 | NUR ---
RENAL US AT BEDSIDE.
--- NOTE | 2024-08-15 12:20 | HMCIMG ---
Exam Type: US RENAL SONOGRAM Clinical Information: indio Comparison: None Findings: Examination shows normal renal size and echogenicity bilaterally. Preserved cortical thickness and corticomedullary junction region is seen. No hydronephrosis or calculi are seen. No renal masses are seen. There is no evidence of perinephric fluid on either side. No evidence of significant ureteral dilatation is seen. The right kidney measures 12.2 x 6.5 cm. The left kidney measures 11.9 x cm. The urinary bladder is normal. No bladder masses, stones, or wall thickening is seen. IMPRESSION: Normal renal anatomy bilaterally.
[2024-08-15] MEDS: ZOSYN 3.375GM +NS 50ML IV SCH (15:48)
--- NOTE | 2024-08-15 16:00 | NUR ---
[facility] AT BEDSIDE.
--- NOTE | 2024-08-15 16:29 | CONS ---
CONSULT NOTE: Consulting physician: Dr. Cotter Consulting service: General surgery Reason for consultation: Diverticulitis with concerns of diverticular perforation History of present illness: This is a 43-year-old male with a known history of recurrent diverticulitis who was seen by our practice over a year prior. Patient unfortunately noncompliant with follow up care and presented back after a one week history of abdominal pain. Patient initially states that three weeks prior he began with discomfort but one week prior presented to [facility] where he was sent home. Patient is due to no significant improvement present back to the hospital for further evaluation where concerns of sigmoid diverticulitis noted with concerns of possible walled-off perforation measuring 4.4 x 4.3 cm. Patient is seen in our ER resting. WBCs 7.5 with a hemoglobin of 14. Patient is novelty twister tender lower quadrants. Patient is a 5/10 on exam. Some distention noted. Medical history: Diverticulosis with recurrent diverticulitis Surgical history: Review of systems: General: No Fever, No Chills, No Night Sweats, No Fatigue, No Malaise, No Appetite, No Other HEENT: No Head Aches, No Visual Changes, No Eye Pain, No Ear Pain, No Dysphasia, No Sinus Congestion, No Post Nasal Drip, No Sore Throat, No Other Pulmonary: No Dyspnea, No Cough, No Pleuritic Chest Pain, No Other Cardiovascular: No: Chest Pain, Palpitations, Orthopnea, Paroxysmal No Dyspnea, Edema, Lt Headedness, Other Gastrointestinal: No: Nausea, Vomiting, Diarrhea, Constipation, Melena, Hematochezia, Other Genitourinary: No Dysuria, No Frequency, No Incontinence, No Hematuria, No Retention, No Other Musculoskeletal: No: other, neck pain, shoulder pain, arm pain, back pain, hand pain, leg pain, foot pain Skin: No Urticaria, No Rash, No Other Neurological: No: Weakness, Numbness, Incoordination, Change in speech, Co nfusion, Seizures, Other Physical exam: General: Awake alert and oriented Heart: Regular rate and rhythm} Lungs: [Clear to auscultation no distress Abdomen: Lower quadrant discomfort Assessment: This is a 43-year-old male with diverticulitis and concerns of diverticular perforation with abscess Plan: At this point in time patient is to remain NPO Plan will be for IR consultation for possible percutaneous drain placement Plan will be for conservative management with no surgical intervention this hospitalization Repeat imaging at day five continue with IV fluids and IV antibiotics Dr. Mancilla to be updated in patient's status and nursing report any further acute events ARAVIND MERRILL Jr. Aug 15, 2024 16:29
--- NOTE | 2024-08-15 23:46 | NUR ---
PATIENT REPORTS HE DOES NOT TAKE ANY PRESCRIBED HOME MEDICATIONS
[2024-08-16] VITALS (8 sets, daily range): BP systolic 117–129; BP diastolic 67–79; PULSE 75–107; RESP 16–20; TEMP 98–98.8; O2SAT 99–100
--- NOTE | 2024-08-16 00:20 | NUR ---
arrival patient alert and oriented times 4. plan of care discussed with him and he verbalized understanding. patient is ambulatory. he is npo for CT guided percutaneous drain placement by IR. I faxed the order to houseperson, nancy, and let her know. Consent signed. he says he does not take any home medications. call light within reach, bed alarm on, 2 side rails up. will continue to monitor patient.
[2024-08-16 05:19] LABS: BASOPHILS # (AUTO) 0.01 K/uL (0.00-0.20); BASOPHILS % (AUTO) 0.2 % (0.0-5.0); EOSINOPHILS # (AUTO) 0.01 K/uL (0.00-0.70); EOSINOPHILS % (AUTO) 0.2 % (0.0-8.0); HEMATOCRIT 37.5 % (42-54); IMMATURE GRANULOCYTE ABSOLUTE 0.02 K/uL (0-1); LYMPHOCYTES % (AUTO) 18.2 % (21.0-51.0); MEAN CORPUSCULAR HEMOGLOBIN 33.2 pg (27.0-33.0); MEAN CORPUSCULAR HGB CONC 35.2 g/dL (32.0-36.0); MEAN CORPUSCULAR VOLUME 94.5 fL (79-99); MONOCYTES # (AUTO) 0.5 K/uL (0.1-1.0); MONOCYTES % (AUTO) 9.4 % (3.0-13.0); NEUTROPHILS # (AUTO) 3.9 K/uL (1.8-7.7); NEUTROPHILS % (AUTO) 71.6 % (40.0-77.0); PLATELET COUNT (AUTO) 152 K/uL (130-400); RED BLOOD CELL COUNT(AUTO) 3.97 MIL/uL (4.50-6.20); WHITE BLOOD COUNT (AUTO) 5.4 K/uL (4.8-10.8)
[2024-08-16 05:22] LABS: INR 0.96 (0.85-1.15); PROTHROMBIN TIME 10.8 SEC (9.6-11.6)
[2024-08-16 05:24] LABS: PARTIAL THROMBOPLASTIN TIME 30.5 SEC (26.3-35.5)
[2024-08-16 05:32] LABS: ALBUMIN 2.7 g/dL (3.5-5.0); BILIRUBIN,TOTAL 1.9 mg/dL (0.2-1.0); MAGNESIUM 2.2 mg/dL (1.80-2.40); POTASSIUM 3.4 mmol/L (3.5-5.1); TOTAL PROTEIN, SERUM 7.6 g/dL (6.0-8.3)
--- NOTE | 2024-08-16 09:50 | NUR ---
RE: DIVERTICULAR ABSCESS DRAIN PLACEMENT BY IR DR Sagar NGUYEN NOTIFIED AND REVIEWED PREVIOUS IMAGES. ABSCESS TOO SMALL WITH NO SAFE ACCESS. PROCEDURE CANCELLED AND OUTCOME REPORTED TO Naveed MAGALLON LVN.
--- NOTE | 2024-08-16 10:55 | PN ---
[facility] PROGRESS NOTE Date of Service: Aug 16, 2024 Time of Service: 10:49 SUBJECTIVE: [ ] This is a 43-year-old male was admitted yesterday 08/14/2024 presents in ER with chief complaints of abdominal pain. ER workup showed diverticulosis there is a sigmoid colon wall thickening with adjustment fat stranding suspicious for acute diverticulitis. General surgeon was consulted we will follow recommendation patient is currently on IV antibiotics IV fluids and pain management. Patient remains in ED holding patient is fully awake alert oriented x3. 08/16/24 patient was evaluated per surgeon concerns of diverticular perforation w ith abscess is scheduled for IR for percutaneous drain. Patient afebrile continues with abdominal pain NPO we will bring ID for antibiotics stewardship. REVIEW OF SYSTEMS CONSTITUTIONAL: Denies fevers, chills, or night sweats. No unintentional weight loss reported. NEUROLOGICAL: Denies headache, amaurosis fugax, motor weakness, sensory deficit, vertigo/spinning sensation, gait abnormalities, or tremors. ENT: No hearing loss, otalgia, otorrhea, rhinitis, rhinorrhea, hoarseness, or sore throat. CARDIOVASCULAR: Denies any exertional angina, dyspnea on exertion, orthopnea, paroxysmal nocturnal dyspnea, palpitations, life-threatening arrhythmias, claudication. PULMONARY: Denies any shortness of breath, cough, phlegm/sputum, hemoptysis, pleuritic chest pain. SLEEP: Denies morning headaches, daytime somnolence or napping. Denies difficulty falling asleep, staying asleep, waking from sleep. Denies knowledge of snoring. GASTROINTESTINAL: Denies any type of dysphagia to either liquids or solids. Denies nausea, vomiting, pyrosis, early satiety, abdominal pain, diarrhea, constipation, or changes in stool consistency or caliber. Denies coffee-ground emesis, hematemesis, hematochezia, or melanotic stools. GENITOURINARY: Denies frequency, urgency, nocturia, hematuria or incontinence (Storage/Irritative symptoms.) Low urinary stream, straining to void, urinary intermittency or hesitancy, splitting of the voiding stream, terminal dribbling. ENDOCRINOLOGIC: Denies polyuria, polydipsia, polyphagia or heat/cold intolerances. HEMATOLOGIC: Denies thrombophilia/previous clots, or coagulopathy/bleeding disorders. ONCOLOGIC: Denies personal history of malignancy. DERMATOLOGIC: Denies rashes or pruritus. PSYCHIATRIC: Denies any suicidal or homicidal ideation. Denies hallucinations. PHYSICAL EXAM GENERAL APPEARANCE: The patient is awake, alert, and oriented, in no acute cardiopulmonary distress. NEUROLOGICAL: Cranial nerves II-XII grossly intact. Motor is 5/5 in bilateral upper and lower extremities proximal to distal. No sensory deficits. HEENT: Face is symmetric. Pupils are equal and reactive. Extraocular movements are intact. NECK: Supple. No JVD. No thyromegaly. No submental, submandibular, pre- /postauricular, occipital or supraclavicular lymphadenopathy. CHEST: Normal chest expansion. No Telemetry. LUNGS: Absence of any rales, rhonchi or any wheezing. CARDIOVASCULAR: Regular. S1 and S2 normal. No appreciable rubs, murmurs or gallops. ABDOMEN: Soft, nontender, and nondistended. There is no rebound, voluntary guarding, or rigidity. : Deferred. No Velez. EXTREMITIES: Non-edematous and not cyanotic. No clubbing. Good capillary refill. SKIN: No skin breakdown. Vital Signs (last 8hr) Date Time Temp Pulse Resp B/P (MAP) Pulse Ox O2 Delivery O2 Flow Rate FiO2 08/16/24 07:55 98.8 107 18 117/72 94 Room Air 21 08/16/24 04:00 98.1 77 20 129/74 99 Room Air LABS: Laboratory: Test 08/16/24 04:54 08/15/24 06:45 08/15/24 04:29 08/15/24 02:11 Range/Units White Blood Count 5.4 # 4.8-10.8 K/uL Red Blood Count 3.97 L 4.50-6.20 MIL/uL Hemoglobin 13.2 L 14.0-18.0 g/dL Hematocrit 37.5 L 42-54 % Mean Corpuscular Volume 94.5 79-99 fL Mean Corpuscular Hemoglobin 33.2 H 27.0-33.0 pg Mean Corpuscular Hemoglobin Concent 35.2 32.0-36.0 g/dL Red Cell Distribution Width 14.0 11.0-15.5 % Platelet Count 152 130-400 K/uL Mean Platelet Volume 10.7 H 7.5-10.5 fL Immature Granulocyte % (Auto) 0.4 0-1 % Neutrophils (%) (Auto) 71.6 40.0-77.0 % Lymphocytes (%) (Auto) 18.2 L 21.0-51.0 % Monocytes (%) (Auto) 9.4 3.0-13.0 % Eosinophils (%) (Auto) 0.2 0.0-8.0 % Basophils (%) (Auto) 0.2 0.0-5.0 % Neutrophils # (Auto) 3.9 1.8-7.7 K/uL Lymphocytes # (Auto) 1.0 1.0-4.8 K/uL Monocytes # (Auto) 0.5 0.1-1.0 K/uL Eosinophils # (Auto) 0.01 0.00-0.70 K/uL Basophils # (Auto) 0.01 0.00-0.20 K/uL Absolute Immature Granulocyte (auto 0.02 0-1 K/uL Nucleated Red Blood Cells 0.0 0.0-0.19 % Prothrombin Time 10.8 9.6-11.6 SEC Prothromb Time International Ratio 0.96 0.85-1.15 Activated Partial Thromboplast Time 30.5 26.3-35.5 SEC Sodium Level 133 L 136-145 mmol/L Potassium Level 3.4 L 3.5-5.1 mmol/L Chloride Level 98 L 101-111 mmol/L Carbon Dioxide Level 25 21-32 mmol/L Blood Urea Nitrogen 12 7-18 mg/dL Creatinine 1.0 0.5-1.3 mg/dL Glomerular Filtration Rate Calc 97 >90 mL/min Random Glucose 86 70-105 mg/dL Total Calcium 8.5 8.5-10.1 mg/dL Magnesium Level 2.20 1.80-2.40 mg/dL Total Bilirubin 1.9 H 0.2-1.0 mg/dL Aspartate Amino Transf (AST/SGOT) 39 H 10-37 U/L Alanine Aminotransferase (ALT/SGPT) 31 12-78 U/L Alkaline Phosphatase 96 50-136 U/L Total Protein 7.6 6.0-8.3 g/dL Albumin 2.7 L 3.5-5.0 g/dL Phosphorus Level 3.1 2.5-4.9 mg/dL Urine Color YELLOW YELLOW Urine Appearance CLEAR CLEAR Urine pH 6.0 5.0-8.0 Urine Specific [place] 1.030 1.001-1.031 Urine Protein 70 H NEGATIVE mg/dL Urine Glucose (UA) NEGATIVE NEGATIVE mg/dL Urine Ketones 10 H NEGATIVE mg/dL Urine Occult Blood SMALL H NEGATIVE Urine Nitrate NEGATIVE NEGATIVE Urine Bilirubin NEGATIVE NEGATIVE mg/dL Urine Urobilinogen 0.2 0.2-1.0 mg/dL Urine Leukocyte Esterase NEGATIVE NEGATIVE Shweta/uL Urine RBC 2-5 H 0-1 /HPF Urine WBC 2-5 H 0-1 /HPF Urine Squamous Epithelial Cells RARE 0-2 /HPF Urine Bacteria RARE None Seen /HPF Urine Random Creatinine 103.31 30-135 mg/dL Urine Random Sodium 20 L 40-220 mmol/l Lactic Acid Level 1.1 0.8-2.5 mmol/L Test 08/15/24 00:24 08/14/24 20:28 Range/Units Influenza Type A Antigen Negative For Type A NEGATIVE Influenza Type B Antigen Negative For Type B NEGATIVE SARS-CoV-2 Antigen (Rapid) PRESUMPTIVE NEGATIVE NEGATIVE White Cell Morphology Comment See comments Direct Bilirubin 0.4 H 0.0-0.3 mg/dL Lipase 34 16-77 U/L Current Medications Medications (Trade) Dose Ordered Sig/Bernarda Route PRN Reason Start Time Stop Time Status Last Admin Dose Admin Acetaminophen (TYLenol 650MG SUPPOSITORY) 650 mg Q6H PRN RC MILD PAIN (1-3) 08/15/24 03:30 09/14/24 03:29 Famotidine (Pepcid 20mg Vial) 20 mg DAILY IV 08/15/24 09:00 08/15/24 03:31 DC Hydralazine HCl (APRESOLine 20MG INJ) 10 mg Q6H PRN IV For:SBP above 160;DBP above 90 08/15/24 03:30 09/14/24 03:29 Lactated Ringer's 1,000 ml @ 75 mls/hr [id number] IV 08/15/24 03:30 09/14/24 03:29 08/16/24 06:22 75 MLS/HR Magnesium Sulfate 50 ml @ 0 mls/hr PROTOCOL PRN IV Low magnesium level 08/15/24 09:00 09/14/24 08:59 Morphine Sulfate (morPHINE 4MG SYG) 4 mg Q4H PRN IVP SEVERE PAIN (7-10) 08/15/24 03:30 08/22/24 03:29 08/16/24 05:17 4 MG Ondansetron HCl (zoFRAN 4MG INJ) 4 mg Q6H PRN IV NAUSEA/VOMITING 08/15/24 03:30 09/14/24 03:29 Pantoprazole Sodium (PROTonix 40MG INJ) 40 mg DAILY IVP 08/15/24 09:00 09/14/24 08:59 08/16/24 08:41 40 MG Piperacillin Sod/ Tazobactam Sod (Zosyn 3.375gm+NS 50ml) 3.375 gm Q12H IV 08/15/24 14:30 08/25/24 14:29 08/16/24 00:45 3.375 GM Potassium Chloride 100 ml @ 50 mls/hr AD PRN IV POTASSIUM PROTOCOL 08/15/24 03:30 08/15/24 08:51 DC 08/15/24 03:58 50 MLS/HR Potassium Chloride 100 ml @ 50 mls/hr AD PRN IV POTASSIUM PROTOCOL 08/15/24 09:00 09/14/24 08:59 08/16/24 05:11 50 MLS/HR DIAGNOSTICS / RADIOLOGY: [ ] ASSESSMENT: acute diverticulitis, POA, by CT on 08/15/2024 Possible diverticular perforation with abscess POA intractalbe abd pain POA ABE, ATN POA Electrolyte derangement hypokalemia Obesity BMI 34.0 POA PLAN: [ ] Admit: Medical-surgical floor condition: Guarded Status: Full code IVF: LR at 75 mL an hour Diet: NPO Consultants general surgeon, software engineer sales's, and ID Antibiotics: Zosyn IV every 12hours renal dose, Test: IR for percutaneous drain Noted renal sonogram Labs cbc, cmp, mag+ in am. Replace electrolytes as needed as per protocol to keep potassium above 4.0 magnesium 2.0. Avoid NSAIDs renal dose we will follow recommendations from software engineer sales's. Home medications pending to be reviewed by RN nurse. PRN: MEDICATIONS Tylenol 650 mg po every 4 hrs for fever zofran 4 mg IV every 6 hrs for n/v Hydralazine 5 mg IV every 4 hrs systolic pressure > 160 bowel regiment: lactulose 20 gm PO BID PRN constipation Pain management: Morphine 2mg IV as needed q4 hrs. Supportive measures: DVT ppx, GI ppx all questions answered Supervising MD: Dr. Betsy Connolly c/d This document was generated in part using voice recognition software, occasional wrong word or sound alike substitutions may have occurred due to the inherent limitations of voice recognition software. Read the chart carefully and recognize using context, where the substitutions have occurred. Although every effort was made to edit the content, edge gluer and typing errors may occur ATTESTATION BY PHYSICIAN I have seen and examined the patient. I reviewed the documentation, medical decision making, and treatment plan as noted by the mid-level provider above. I agree with the findings and plan of care. Dayami Schreiber MD, ELIZABETH NP Aug 16, 2024 10:55
--- NOTE | 2024-08-16 17:14 | PN ---
Interval history: This 43-year-old male seen in his room resting Patient's pain significantly better IR unable to place percutaneous drain Patient tolerating clear liquid diet No other acute events reported at this time Physical exam General: Awake alert and oriented Heart: Regular rate and rhythm} Lungs: Clear to auscultation no distress Abdomen: [Soft, nontender, nondistended Assessment : This is a 43-year-old male with concerns of diverticulitis with diverticular abscess Plan: Patient to continue with clear liquids Continue with IV fluids and IV antibiotics Repeat imaging likely necessary in the next few days to assess progress of abscess Dr. Aaron to be updated in patient's status and surgical team to follow patient closely Vitals/Labs Vital Signs Date Time Temp Pulse Resp B/P (MAP) Pulse Ox O2 Delivery O2 Flow Rate FiO2 08/16/24 12:00 98.1 85 18 119/74 96 Room Air 21 08/16/24 08:10 0 Laboratory Tests 08/16/24 04:54 Medications Current Medications Sodium Chloride 1,000 ml @ 0 mls/hr ONCE ONCE IV Last administered on 08/15/24at 00:39; Start 08/14/24 at 19:30; Stop 08/14/24 at 19:31; Status DC Morphine Sulfate 4 mg ONCE ONCE IVP Last administered on 08/15/24at 00:39; Start 08/14/24 at 19:30; Stop 08/14/24 at 19:31; Status DC Ondansetron HCl 4 mg ONCE ONCE IVP Last administered on 08/15/24at 00:39; Start 08/14/24 at 19:30; Stop 08/14/24 at 19:31; Status DC Ondansetron HCl 4 mg STK-MED ONCE .ROUTE; Start 08/15/24 at 00:23; Stop 08/15/24 at 00:24; Status DC Sodium Chloride 1,000 ml @ As Directed STK-MED ONCE IV; Start 08/15/24 at 00:23; Stop 08/15/24 at 00:24; Status DC Morphine Sulfate 4 mg STK-MED ONCE .ROUTE; Start 08/15/24 at 00:24; Stop 08/15/24 at 00:24; Status DC Iohexol 35,000 mg STK-MED ONCE IV; Start 08/15/24 at 01:14; Stop 08/15/24 at 01:14; Status DC Piperacillin Sod/ Tazobactam Sod 3.375 gm ONCE ONCE IV Last administered on 08/15/24at 02:22; Start 08/15/24 at 02:30; Stop 08/15/24 at 02:31; Status DC Vancomycin HCl 250 ml @ 125 mls/hr ONCE ONCE IV; Start 08/15/24 at 02:30; Stop 08/15/24 at 02:16; Status DC Acetaminophen 650 mg Q6H PRN RC; Start 08/15/24 at 03:30; Stop 09/14/24 at 03:29 Ondansetron HCl 4 mg Q6H PRN IV; Start 08/15/24 at 03:30; Stop 09/14/24 at 03:29 Morphine Sulfate 4 mg Q4H PRN IVP Last administered on 08/16/24at 05:17; Start 08/15/24 at 03:30; Stop 08/22/24 at 03:29 Hydralazine HCl 10 mg Q6H PRN IV; Start 08/15/24 at 03:30; Stop 09/14/24 at 03:29 Famotidine 20 mg DAILY IV; Start 08/15/24 at 09:00; Stop 08/15/24 at 03:31; Status DC Lactated Ringer's 1,000 ml @ 75 mls/hr [id number] IV Last administered on 08/16/24at 06:22; Start 08/15/24 at 03:30; Stop 09/14/24 at 03:29 Piperacillin Sod/ Tazobactam Sod 3.375 gm Q12H IV Last administered on 08/16/24at 14:26; Start 08/15/24 at 14:30; Stop 08/25/24 at 14:29 Potassium Chloride 100 ml @ 50 mls/hr AD PRN IV Last administered on 08/15/24at 03:58; Start 08/15/24 at 03:30; Stop 08/15/24 at 08:51; Status DC Pantoprazole Sodium 40 mg DAILY IVP Last administered on 08/16/24at 08:41; Start 08/15/24 at 09:00; Stop 09/14/24 at 08:59 Potassium Chloride 100 ml @ 50 mls/hr AD PRN IV Last administered on 08/16/24at 05:11; Start 08/15/24 at 09:00; Stop 09/14/24 at 08:59 Magnesium Sulfate 50 ml @ 0 mls/hr PROTOCOL PRN IV; Start 08/15/24 at 09:00; Stop 09/14/24 at 08:59 ARAVIND MERRILL Jr. Aug 16, 2024 17:14
[2024-08-17 04:16] VITALS: BP 127/63; PULSE 77; RESP 17; TEMP 98.3
[2024-08-17 08:03] VITALS: BP 127/85; PULSE 71; RESP 19; TEMP 98.8
[2024-08-17 08:20] VITALS: O2SAT 93
--- NOTE | 2024-08-17 10:38 | NUR ---
DCP Patient is currently from [place], Spouse [phone] and living with disabled mother. mother receives assistance with housing, medicine and [employer]. States he has two children who receive Medicaid and they live with their mother. 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 States he can not afford medical insurance and does not have a PCP. States able to complete ADL's on his own. Denies use of medical devices but there is a shower chair available. Denies home health services or dialysis services. PCP - None Pharmacy - [facility], [place], [place]. States he knows he needs annual physicals and necessary screenings upon discharge. Mary Pate, Spouse [phone] will provide transportation to his mother's house. needs assistance with health insurance. Provided Community Service list. Addendum: 08/17/24 at 1050 by KHANH WALKER RN CM Amended: Links added.
[2024-08-17 12:06] VITALS: BP 133/78; PULSE 84; RESP 19; TEMP 98.5
--- NOTE | 2024-08-17 12:18 | PN ---
[facility] PROGRESS NOTE Date of Service: Aug 17, 2024 Time of Service: 12:10 SUBJECTIVE: [ ] This is a 43-year-old male was admitted yesterday 08/14/2024 presents in ER with chief complaints of abdominal pain. ER workup showed diverticulosis there is a sigmoid colon wall thickening with adjustment fat stranding suspicious for acute diverticulitis. General surgeon was consulted we will follow recommendation patient is currently on IV antibiotics IV fluids and pain management. Patient remains in ED holding patient is fully awake alert oriented x3. 08/16/24 patient was evaluated per surgeon concerns of diverticular perforation w ith abscess is scheduled for IR for percutaneous drain. Patient afebrile continues with abdominal pain NPO we will bring ID for antibiotics stewardship. 08/17/24 patient is doing well started on clear liquid diet I are for drainage was unsuccessful given to location continues on IV antibiotics surgeon we will repeat CT abdomen several days. Patient continues to request pain medication for pain. REVIEW OF SYSTEMS CONSTITUTIONAL: Denies fevers, chills, or night sweats. No unintentional weight loss reported. NEUROLOGICAL: Denies headache, amaurosis fugax, motor weakness, sensory deficit, vertigo/spinning sensation, gait abnormalities, or tremors. ENT: No hearing loss, otalgia, otorrhea, rhinitis, rhinorrhea, hoarseness, or sore throat. CARDIOVASCULAR: Denies any exertional angina, dyspnea on exertion, orthopnea, paroxysmal nocturnal dyspnea, palpitations, life-threatening arrhythmias, claudi cation. PULMONARY: Denies any shortness of breath, cough, phlegm/sputum, hemoptysis, pleuritic chest pain. SLEEP: Denies morning headaches, daytime somnolence or napping. Denies difficulty falling asleep, staying asleep, waking from sleep. Denies knowledge of snoring. GASTROINTESTINAL: Denies any type of dysphagia to either liquids or solids. Denies nausea, vomiting, pyrosis, early satiety, abdominal pain, diarrhea, constipation, or changes in stool consistency or caliber. Denies coffee-ground emesis, hematemesis, hematochezia, or melanotic stools. GENITOURINARY: Denies frequency, urgency, nocturia, hematuria or incontinence (Storage/Irritative symptoms.) Low urinary stream, straining to void, urinary intermittency or hesitancy, splitting of the voiding stream, terminal dribbling. ENDOCRINOLOGIC: Denies polyuria, polydipsia, polyphagia or heat/cold intolerances. HEMATOLOGIC: Denies thrombophilia/previous clots, or coagulopathy/bleeding disorders. ONCOLOGIC: Denies personal history of malignancy. DERMATOLOGIC: Denies rashes or pruritus. PSYCHIATRIC: Denies any suicidal or homicidal ideation. Denies hallucinations. PHYSICAL EXAM GENERAL APPEARANCE: The patient is awake, alert, and oriented, in no acute cardiopulmonary distress. NEUROLOGICAL: Cranial nerves II-XII grossly intact. Motor is 5/5 in bilateral upper and lower extremities proximal to distal. No sensory deficits. HEENT: Face is symmetric. Pupils are equal and reactive. Extraocular movements are intact. NECK: Supple. No JVD. No thyromegaly. No submental, submandibular, pre- /postauricular, occipital or supraclavicular lymphadenopathy. CHEST: Normal chest expansion. No Telemetry. LUNGS: Absence of any rales, rhonchi or any wheezing. CARDIOVASCULAR: Regular. S1 and S2 normal. No appreciable rubs, murmurs or gallops. ABDOMEN: Soft, nontender, and nondistended. There is no rebound, voluntary guarding, or rigidity. : Deferred. No Velez. EXTREMITIES: Non-edematous and not cyanotic. No clubbing. Good capillary refill. SKIN: No skin breakdown. Vital Signs (last 8hr) Date Time Temp Pulse Resp B/P (MAP) Pulse Ox O2 Delivery O2 Flow Rate FiO2 08/17/24 12:06 98.4 84 19 133/78 96 Room Air 08/17/24 08:20 93 Room Air* 0 21 08/17/24 08:03 98.8 71 19 127/85 93 Room Air 08/17/24 04:16 98.2 77 17 127/63 96 Room Air LABS: Laboratory: Test 08/16/24 04:54 Range/Units White Blood Count 5.4 # 4.8-10.8 K/uL Red Blood Count 3.97 L 4.50-6.20 MIL/uL Hemoglobin 13.2 L 14.0-18.0 g/dL Hematocrit 37.5 L 42-54 % Mean Corpuscular Volume 94.5 79-99 fL Mean Corpuscular Hemoglobin 33.2 H 27.0-33.0 pg Mean Corpuscular Hemoglobin Concent 35.2 32.0-36.0 g/dL Red Cell Distribution Width 14.0 11.0-15.5 % Platelet Count 152 130-400 K/uL Mean Platelet Volume 10.7 H 7.5-10.5 fL Immature Granulocyte % (Auto) 0.4 0-1 % Neutrophils (%) (Auto) 71.6 40.0-77.0 % Lymphocytes (%) (Auto) 18.2 L 21.0-51.0 % Monocytes (%) (Auto) 9.4 3.0-13.0 % Eosinophils (%) (Auto) 0.2 0.0-8.0 % Basophils (%) (Auto) 0.2 0.0-5.0 % Neutrophils # (Auto) 3.9 1.8-7.7 K/uL Lymphocytes # (Auto) 1.0 1.0-4.8 K/uL Monocytes # (Auto) 0.5 0.1-1.0 K/uL Eosinophils # (Auto) 0.01 0.00-0.70 K/uL Basophils # (Auto) 0.01 0.00-0.20 K/uL Absolute Immature Granulocyte (auto 0.02 0-1 K/uL Nucleated Red Blood Cells 0.0 0.0-0.19 % Prothrombin Time 10.8 9.6-11.6 SEC Prothromb Time International Ratio 0.96 0.85-1.15 Activated Partial Thromboplast Time 30.5 26.3-35.5 SEC Sodium Level 133 L 136-145 mmol/L Potassium Level 3.4 L 3.5-5.1 mmol/L Chloride Level 98 L 101-111 mmol/L Carbon Dioxide Level 25 21-32 mmol/L Blood Urea Nitrogen 12 7-18 mg/dL Creatinine 1.0 0.5-1.3 mg/dL Glomerular Filtration Rate Calc 97 >90 mL/min Random Glucose 86 70-105 mg/dL Total Calcium 8.5 8.5-10.1 mg/dL Magnesium Level 2.20 1.80-2.40 mg/dL Total Bilirubin 1.9 H 0.2-1.0 mg/dL Aspartate Amino Transf (AST/SGOT) 39 H 10-37 U/L Alanine Aminotransferase (ALT/SGPT) 31 12-78 U/L Alkaline Phosphatase 96 50-136 U/L Total Protein 7.6 6.0-8.3 g/dL Albumin 2.7 L 3.5-5.0 g/dL Current Medications Medications (Trade) Dose Ordered Sig/Bernarda Route PRN Reason Start Time Stop Time Status Last Admin Dose Admin Acetaminophen (TYLenol 650MG SUPPOSITORY) 650 mg Q6H PRN RC MILD PAIN (1-3) 08/15/24 03:30 09/14/24 03:29 Famotidine (Pepcid 20mg Vial) 20 mg DAILY IV 08/15/24 09:00 08/15/24 03:31 DC Hydralazine HCl (APRESOLine 20MG INJ) 10 mg Q6H PRN IV For:SBP above 160;DBP above 90 08/15/24 03:30 09/14/24 03:29 Lactated Ringer's 1,000 ml @ 75 mls/hr [id number] IV 08/15/24 03:30 09/14/24 03:29 08/17/24 08:57 75 MLS/HR Magnesium Sulfate 50 ml @ 0 mls/hr PROTOCOL PRN IV Low magnesium level 08/15/24 09:00 09/14/24 08:59 Morphine Sulfate (morPHINE 4MG SYG) 4 mg Q4H PRN IVP SEVERE PAIN (7-10) 08/15/24 03:30 08/22/24 03:29 08/17/24 01:04 4 MG Ondansetron HCl (zoFRAN 4MG INJ) 4 mg Q6H PRN IV NAUSEA/VOMITING 08/15/24 03:30 09/14/24 03:29 Pantoprazole Sodium (PROTonix 40MG INJ) 40 mg DAILY IVP 08/15/24 09:00 09/14/24 08:59 08/17/24 08:58 40 MG Piperacillin Sod/ Tazobactam Sod (Zosyn 3.375gm+NS 50ml) 3.375 gm Q12H IV 08/15/24 14:30 08/25/24 14:29 08/17/24 01:04 3.375 GM Potassium Chloride 100 ml @ 50 mls/hr AD PRN IV POTASSIUM PROTOCOL 08/15/24 03:30 08/15/24 08:51 DC 08/15/24 03:58 50 MLS/HR Potassium Chloride 100 ml @ 50 mls/hr AD PRN IV POTASSIUM PROTOCOL 08/15/24 09:00 09/14/24 08:59 08/16/24 05:11 50 MLS/HR DIAGNOSTICS / RADIOLOGY: [ ] ASSESSMENT: Possible sepsis poa acute diverticulitis, POA, by CT on 08/15/2024 Possible diverticular perforation with abscess POA unsuccessful IR drainage intractable abd pain POA ABE, ATN POA Electrolyte derangement hypokalemia hyponatremia Obesity BMI 34.0 POA PLAN: [ ] Admit: Medical-surgical floor condition: Guarded Status: Full code IVF: LR at 75 mL an hour Diet: Clear liquid diet Consultants general surgeon, bail bonding agent's Antibiotics: Zosyn IV every 12hours renal dose, Test: We will repeat CT scan abdomen in a few days to assess progress of abscess. Labs cbc, cmp, mag+ in am. Replace electrolytes as needed as per protocol to keep potassium above 4.0 magnesium 2.0. Avoid NSAIDs renal dose we will follow recommendations from bail bonding agent's. PRN: MEDICATIONS Tylenol 650 mg po every 4 hrs for fever zofran 4 mg IV every 6 hrs for n/v Hydralazine 5 mg IV every 4 hrs systolic pressure > 160 bowel regiment: lactulose 20 gm PO BID PRN constipation Pain management: Morphine2 mg IV every 4 hours Supportive measures: DVT ppx, GI ppx all questions answered Supervising MD: Dr. Betsy Connolly c/d This document was generated in part using voice recognition software, occasional wrong word or sound alike substitutions may have occurred due to the inherent limitations of voice recognition software. Read the chart carefully and recogn ize using context, where the substitutions have occurred. Although every effort was made to edit the content, end worker and typing errors may occur ATTESTATION BY PHYSICIAN I have seen and examined the patient. I reviewed the documentation, medical decision making, and treatment plan as noted by the mid-level provider above. I agree with the findings and plan of care. Dayami Schreiber MD, ELIZABETH NP Aug 17, 2024 12:18
[2024-08-17] MEDS ORDERED: LACTULOSE 20 GM/30 ML UDCUP PO PRN (12:30)
[2024-08-17] MEDS: HYDROcodone/APAP 5/325 1 TAB TABLET PO PRN (15:54)
[2024-08-17 16:00] VITALS: BP 132/64; PULSE 58; RESP 19; TEMP 98
--- NOTE | 2024-08-17 17:00 | PN ---
Interval history: This 43-year-old male seen in his room resting Patient overall doing well with no acute concerns reported Patient tolerating clear liquids Patient otherwise stable Physical exam General: Awake alert and oriented Heart: Regular rate and rhythm} Lungs: Clear to auscultation no distress Abdomen: [Soft, nontender, nondistended Assessment : This is a 43-year-old male with concerns of diverticulitis with diverticular abscess Plan: Patient to continue with diet as tolerated Possible repeat imaging at day five of hospitalization Continue with IV fluids and IV antibiotics No surgical intervention Dr. Mancilla to be updated in patient's status and surgical team to follow patient closely Vitals/Labs Vital Signs Date Time Temp Pulse Resp B/P (MAP) Pulse Ox O2 Delivery O2 Flow Rate FiO2 08/17/24 16:00 98.1 58 19 132/64 Room Air 08/17/24 12:06 96 08/17/24 08:20 0 21 Medications Current Medications Sodium Chloride 1,000 ml @ 0 mls/hr ONCE ONCE IV Last administered on 08/15/24at 00:39; Start 08/14/24 at 19:30; Stop 08/14/24 at 19:31; Status DC Morphine Sulfate 4 mg ONCE ONCE IVP Last administered on 08/15/24at 00:39; Start 08/14/24 at 19:30; Stop 08/14/24 at 19:31; Status DC Ondansetron HCl 4 mg ONCE ONCE IVP Last administered on 08/15/24at 00:39; Start 08/14/24 at 19:30; Stop 08/14/24 at 19:31; Status DC Ondansetron HCl 4 mg STK-MED ONCE .ROUTE; Start 08/15/24 at 00:23; Stop 08/15/24 at 00:24; Status DC Sodium Chloride 1,000 ml @ As Directed STK-MED ONCE IV; Start 08/15/24 at 00:23; Stop 08/15/24 at 00:24; Status DC Morphine Sulfate 4 mg STK-MED ONCE .ROUTE; Start 08/15/24 at 00:24; Stop 08/15/24 at 00:24; Status DC Iohexol 35,000 mg STK-MED ONCE IV; Start 08/15/24 at 01:14; Stop 08/15/24 at 01:14; Status DC Piperacillin Sod/ Tazobactam Sod 3.375 gm ONCE ONCE IV Last administered on 08/15/24at 02:22; Start 08/15/24 at 02:30; Stop 08/15/24 at 02:31; Status DC Vancomycin HCl 250 ml @ 125 mls/hr ONCE ONCE IV; Start 08/15/24 at 02:30; Stop 08/15/24 at 02:16; Status DC Acetaminophen 650 mg Q6H PRN RC; Start 08/15/24 at 03:30; Stop 09/14/24 at 03:29 Ondansetron HCl 4 mg Q6H PRN IV; Start 08/15/24 at 03:30; Stop 09/14/24 at 03:29 Morphine Sulfate 4 mg Q4H PRN IVP Last administered on 08/17/24at 01:04; Start 08/15/24 at 03:30; Stop 08/22/24 at 03:29 Hydralazine HCl 10 mg Q6H PRN IV; Start 08/15/24 at 03:30; Stop 09/14/24 at 03:29 Famotidine 20 mg DAILY IV; Start 08/15/24 at 09:00; Stop 08/15/24 at 03:31; Status DC Lactated Ringer's 1,000 ml @ 75 mls/hr [id number] IV Last administered on 08/17/24at 08:57; Start 08/15/24 at 03:30; Stop 09/14/24 at 03:29 Piperacillin Sod/ Tazobactam Sod 3.375 gm Q12H IV Last administered on 08/17/24at 15:20; Start 08/15/24 at 14:30; Stop 08/25/24 at 14:29 Potassium Chloride 100 ml @ 50 mls/hr AD PRN IV Last administered on 08/15/24at 03:58; Start 08/15/24 at 03:30; Stop 08/15/24 at 08:51; Status DC Pantoprazole Sodium 40 mg DAILY IVP Last administered on 08/17/24at 08:58; Start 08/15/24 at 09:00; Stop 09/14/24 at 08:59 Potassium Chloride 100 ml @ 50 mls/hr AD PRN IV Last administered on 08/16/24at 05:11; Start 08/15/24 at 09:00; Stop 09/14/24 at 08:59 Magnesium Sulfate 50 ml @ 0 mls/hr PROTOCOL PRN IV; Start 08/15/24 at 09:00; Stop 09/14/24 at 08:59 Lactulose 20 gm BID PRN PO; Start 08/17/24 at 12:30; Stop 09/16/24 at 12:29 Acetaminophen/ Hydrocodone Bitart 1 tab Q6H PRN PO Last administered on 08/17/24at 15:54; Start 08/17/24 at 16:00; Stop 08/22/24 at 15:59 ARAVIND MERRILL Jr. Aug 17, 2024 17:00
[2024-08-17 20:00] VITALS: BP 116/76; PULSE 65; RESP 17; TEMP 97.4
--- NOTE | 2024-08-17 23:19 | PN ---
INFECTIOUS DISEASE FOLLOWUP NOTE DATE OF SERVICE: 08/17/2024. SUBJECTIVE: The patient is seen and examined at bedside today. The patient has had no fever or chills. Tolerating clear liquid diet today. No nausea or vomiting. ____ abdominal pain. No dysuria or hematuria. PHYSICAL EXAMINATION: VITAL SIGNS: Temperature 98.5. EYES: No icterus. Pupils equal and reactive. HENT: No oral thrush seen. Moist oral mucosa. NECK: Supple, no JVD or thyromegaly. LUNGS: Good air entry. No rales, no rhonchi. CARDIOVASCULAR: S1, S2 regular. No murmur heard. ABDOMEN: Obese, soft. Bowel sound is present. Tenderness in left lower quadrant. CENTRAL NERVOUS SYSTEM: Awake, alert, oriented x 3. No focal deficit. ASSESSMENT: A 43-year-old man admitted with abdominal pain. CURRENT PROBLEMS: Include: * Acute diverticulitis. * Abdominal pain. * Morbid obesity. PLAN: * Continue Zosyn. * Continue pain management. * Continue antiemetic. * Monitor electrolytes. * The patient will need repeat CT scan to rule out abscess formation. TID: [id number] RECEIPT: [id number]
[2024-08-18] VITALS (7 sets, daily range): BP systolic 112–131; BP diastolic 70–84; PULSE 61–79; RESP 17–20; TEMP 97.8–99.7
[2024-08-18 04:30] LABS: BASOPHILS # (AUTO) 0.02 K/uL (0.00-0.20); BASOPHILS % (AUTO) 0.4 % (0.0-5.0); EOSINOPHILS # (AUTO) 0.12 K/uL (0.00-0.70); EOSINOPHILS % (AUTO) 2.4 % (0.0-8.0); HEMATOCRIT 36.6 % (42-54); IMMATURE GRANULOCYTE ABSOLUTE 0.03 K/uL (0-1); LYMPHOCYTES # (AUTO) 1.3 K/uL (1.0-4.8); LYMPHOCYTES % (AUTO) 26.3 % (21.0-51.0); MEAN CORPUSCULAR HEMOGLOBIN 32.6 pg (27.0-33.0); MEAN CORPUSCULAR HGB CONC 34.2 g/dL (32.0-36.0); MEAN CORPUSCULAR VOLUME 95.6 fL (79-99); MONOCYTES # (AUTO) 0.5 K/uL (0.1-1.0); MONOCYTES % (AUTO) 10.2 % (3.0-13.0); NEUTROPHILS % (AUTO) 60.1 % (40.0-77.0); PLATELET COUNT (AUTO) 169 K/uL (130-400); RED BLOOD CELL COUNT(AUTO) 3.83 MIL/uL (4.50-6.20); RED CELL DISTRIBUTION WIDTH 13.9 % (11.0-15.5)
[2024-08-18 04:48] LABS: BASOPHILS % (MANUAL) 1 % (0-2); EOSINOPHILS % (MANUAL) 2 % (1-6); LYMPHOCYTES % (MANUAL) 24 % (22-44); MAN.DIFF COMMENT-IMPRESSION MANUAL DIFFERENTIAL; MONOCYTES % (MANUAL) 14 % (2-9); SEGMENTED NEUTROPHILS % 59 % (40-70); TOTAL CELLS COUNTED 100
[2024-08-18 04:49] LABS: PLATELET MORPHOLOGY COMMENT ADEQUATE
[2024-08-18 04:50] LABS: ALBUMIN 2.6 g/dL (3.5-5.0); BILIRUBIN,TOTAL 1.4 mg/dL (0.2-1.0); CREATININE 0.8 mg/dL (0.5-1.3); MAGNESIUM 1.9 mg/dL (1.80-2.40); POTASSIUM 3.2 mmol/L (3.5-5.1); TOTAL PROTEIN, SERUM 7.4 g/dL (6.0-8.3)
[2024-08-18] MEDS: MAGNESIUM 2GM PREMIX 50ML 50 ML IV PRN (06:34)
--- NOTE | 2024-08-18 09:45 | PN ---
[facility] PROGRESS NOTE Date of Service: Aug 18, 2024 Time of Service: 09:41 SUBJECTIVE: [ ] This is a 43-year-old male was admitted yesterday 08/14/2024 presents in ER with chief complaints of abdominal pain. ER workup showed diverticulosis there is a sigmoid colon wall thickening with adjustment fat stranding suspicious for acute diverticulitis. General surgeon was consulted we will follow recommendation patient is currently on IV antibiotics IV fluids and pain management. Patient remains in ED holding patient is fully awake alert oriented x3. 08/16/24 patient was evaluated per surgeon concerns of diverticular perforation w ith abscess is scheduled for IR for percutaneous drain. Patient afebrile continues with abdominal pain NPO we will bring ID for antibiotics stewardship. 08/17/24 patient is doing well started on clear liquid diet I are for drainage was unsuccessful given to location continues on IV antibiotics surgeon we will repeat CT abdomen several days. Patient continues to request pain medication for pain. 08/18/24 patient is fully awake alert oriented x3 continues with abdominal pain was started on p.o. [place]. Appreciate ID input repeat CT scan to rule out abscess formation. Continues IV antibiotics tolerating well. REVIEW OF SYSTEMS CONSTITUTIONAL: Denies fevers, chills, or night sweats. No unintentional weight loss reported. NEUROLOGICAL: Denies headache, amaurosis fugax, motor weakness, sensory deficit, vertigo/spinning sensation, gait abnormalities, or tremors. ENT: No hearing loss, otalgia, otorrhea, rhinitis, rhinorrhea, hoarseness, or sore throat. CARDIOVASCULAR: Denies any exertional angina, dyspnea on exertion, orthopnea, paroxysmal nocturnal dyspnea, palpitations, life-threatening arrhythmias, claudication. PULMONARY: Denies any shortness of breath, cough, phlegm/sputum, hemoptysis, pleuritic chest pain. SLEEP: Denies morning headaches, daytime somnolence or napping. Denies difficulty falling asleep, staying asleep, waking from sleep. Denies knowledge of snoring. GASTROINTESTINAL: Denies any type of dysphagia to either liquids or solids. Denies nausea, vomiting, pyrosis, early satiety, abdominal pain, diarrhea, constipation, or changes in stool consistency or caliber. Denies coffee-ground emesis, hematemesis, hematochezia, or melanotic stools. GENITOURINARY: Denies frequency, urgency, nocturia, hematuria or incontinence (Storage/Irritative symptoms.) Low urinary stream, straining to void, urinary intermittency or hesitancy, splitting of the voiding stream, terminal dribbling. ENDOCRINOLOGIC: Denies polyuria, polydipsia, polyphagia or heat/cold intolerances. HEMATOLOGIC: Denies thrombophilia/previous clots, or coagulopathy/bleeding disorders. ONCOLOGIC: Denies personal history of malignancy. DERMATOLOGIC: Denies rashes or pruritus. PSYCHIATRIC: Denies any suicidal or homicidal ideation. Denies hallucinations. PHYSICAL EXAM GENERAL APPEARANCE: The patient is awake, alert, and oriented, in no acute cardiopulmonary distress. NEUROLOGICAL: Cranial nerves II-XII grossly intact. Motor is 5/5 in bilateral upper and lower extremities proximal to distal. No sensory deficits. HEENT: Face is symmetric. Pupils are equal and reactive. Extraocular movements are intact. NECK: Supple. No JVD. No thyromegaly. No submental, submandibular, pre- /postauricular, occipital or supraclavicular lymphadenopathy. CHEST: Normal chest expansion. No Telemetry. LUNGS: Absence of any rales, rhonchi or any wheezing. CARDIOVASCULAR: Regular. S1 and S2 normal. No appreciable rubs, murmurs or g allops. ABDOMEN: Soft, nontender, and nondistended. There is no rebound, voluntary gua rding, or rigidity. : Deferred. No Velez. EXTREMITIES: Non-edematous and not cyanotic. No clubbing. Good capillary refill. SKIN: No skin breakdown. Vital Signs (last 8hr) Date Time Temp Pulse Resp B/P (MAP) Pulse Ox O2 Delivery O2 Flow Rate FiO2 08/18/24 08:00 99.7 61 17 128/80 97 Room Air 08/18/24 05:05 97.9 08/18/24 04:00 97.9 66 18 131/75 94 Room Air LABS: Laboratory: Test 08/18/24 04:14 Range/Units White Blood Count 5.0 4.8-10.8 K/uL Red Blood Count 3.83 L 4.50-6.20 MIL/uL Hemoglobin 12.5 L 14.0-18.0 g/dL Hematocrit 36.6 L 42-54 % Mean Corpuscular Volume 95.6 79-99 fL Mean Corpuscular Hemoglobin 32.6 27.0-33.0 pg Mean Corpuscular Hemoglobin Concent 34.2 32.0-36.0 g/dL Red Cell Distribution Width 13.9 11.0-15.5 % Platelet Count 169 130-400 K/uL Mean Platelet Volume 11.3 H 7.5-10.5 fL Immature Granulocyte % (Auto) 0.6 0-1 % Neutrophils (%) (Auto) 60.1 40.0-77.0 % Lymphocytes (%) (Auto) 26.3 21.0-51.0 % Monocytes (%) (Auto) 10.2 3.0-13.0 % Eosinophils (%) (Auto) 2.4 0.0-8.0 % Basophils (%) (Auto) 0.4 0.0-5.0 % Neutrophils # (Auto) 3.0 1.8-7.7 K/uL Lymphocytes # (Auto) 1.3 1.0-4.8 K/uL Monocytes # (Auto) 0.5 0.1-1.0 K/uL Eosinophils # (Auto) 0.12 0.00-0.70 K/uL Basophils # (Auto) 0.02 0.00-0.20 K/uL Absolute Immature Granulocyte (auto 0.03 0-1 K/uL Segmented Neutrophils % 59 40-70 % Lymphocytes % (Manual) 24 22-44 % Monocytes % (Manual) 14 H 2-9 % Eosinophils % (Manual) 2 1-6 % Basophils % (Manual) 1 0-2 % Nucleated Red Blood Cells 0.0 0.0-0.19 % Differential Comment MANUAL DIFFERENTIAL White Cell Morphology Comment Platelet Morphology Comment ADEQUATE Red Blood Cell Morphology ANISO 1+ Sodium Level 135 L 136-145 mmol/L Potassium Level 3.2 L 3.5-5.1 mmol/L Chloride Level 99 L 101-111 mmol/L Carbon Dioxide Level 24 21-32 mmol/L Blood Urea Nitrogen 6 L 7-18 mg/dL Creatinine 0.8 0.5-1.3 mg/dL Glomerular Filtration Rate Calc 114 >90 mL/min Random Glucose 90 70-105 mg/dL Total Calcium 8.5 8.5-10.1 mg/dL Magnesium Level 1.90 1.80-2.40 mg/dL Total Bilirubin 1.4 H 0.2-1.0 mg/dL Aspartate Amino Transf (AST/SGOT) 46 H 10-37 U/L Alanine Aminotransferase (ALT/SGPT) 43 12-78 U/L Alkaline Phosphatase 148 H 50-136 U/L C-Reactive Protein, Quantitative 134.70 H 0.5-3.0 mg/L Total Protein 7.4 6.0-8.3 g/dL Albumin 2.6 L 3.5-5.0 g/dL Procalcitonin 0.66 H 0.05-0.5 ng/mL Current Medications Medications (Trade) Dose Ordered Sig/Bernarda Route PRN Reason Start Time Stop Time Status Last Admin Dose Admin Acetaminophen (TYLenol 650MG SUPPOSITORY) 650 mg Q6H PRN RC MILD PAIN (1-3) 08/15/24 03:30 09/14/24 03:29 Acetaminophen/ Hydrocodone Bitart (NORco 5/325MG) 1 tab Q6H PRN PO MODERATE PAIN (4-6) 08/17/24 16:00 08/22/24 15:59 08/18/24 09:16 1 TAB Famotidine (Pepcid 20mg Vial) 20 mg DAILY IV 08/15/24 09:00 08/15/24 03:31 DC Hydralazine HCl (APRESOLine 20MG INJ) 10 mg Q6H PRN IV For:SBP above 160;DBP above 90 08/15/24 03:30 09/14/24 03:29 Lactated Ringer's 1,000 ml @ 75 mls/hr [id number] IV 08/15/24 03:30 09/14/24 03:29 08/17/24 22:14 75 MLS/HR Lactulose (Constulose 20gm/ 30ml Udcup) 20 gm BID PRN PO CONSTIPATION 08/17/24 12:30 09/16/24 12:29 Magnesium Sulfate 50 ml @ 0 mls/hr PROTOCOL PRN IV Low magnesium level 08/15/24 09:00 09/14/24 08:59 08/18/24 06:34 25 MLS/HR Morphine Sulfate (morPHINE 4MG SYG) 4 mg Q4H PRN IVP SEVERE PAIN (7-10) 08/15/24 03:30 08/22/24 03:29 08/18/24 04:20 4 MG Ondansetron HCl (zoFRAN 4MG INJ) 4 mg Q6H PRN IV NAUSEA/VOMITING 08/15/24 03:30 09/14/24 03:29 Pantoprazole Sodium (PROTonix 40MG INJ) 40 mg DAILY IVP 08/15/24 09:00 09/14/24 08:59 08/18/24 09:10 40 MG Piperacillin Sod/ Tazobactam Sod (Zosyn 3.375gm+NS 50ml) 3.375 gm Q12H IV 08/15/24 14:30 08/25/24 14:29 08/18/24 01:30 3.375 GM Potassium Chloride 100 ml @ 50 mls/hr AD PRN IV POTASSIUM PROTOCOL 08/15/24 03:30 08/15/24 08:51 DC 08/15/24 03:58 50 MLS/HR Potassium Chloride 100 ml @ 50 mls/hr AD PRN IV POTASSIUM PROTOCOL 08/15/24 09:00 09/14/24 08:59 08/16/24 05:11 50 MLS/HR DIAGNOSTICS / RADIOLOGY: [ ] ASSESSMENT: Possible sepsis poa acute diverticulitis, POA, by CT on 08/15/2024 Possible diverticular perforation with abscess POA unsuccessful IR drainage intractable abd pain POA ABE, ATN POA Electrolyte derangement hypokalemia hyponatremia Obesity BMI 34.0 POA PLAN: [ ] Admit: Medical-surgical floor condition: Guarded Status: Full code IVF: LR at 75 mL an hour Diet: Clear liquid diet as tolerated defer surgeon Consultants general surgeon, hand umbrella tipper's Antibiotics: Zosyn IV every 12hours renal dose, Test:repeat CT scan abdomen in a few days to assess progress of abscess. Labs cbc, cmp, mag+ in am. Replace electrolytes as needed as per protocol to keep potassium above 4.0 magnesium 2.0. Avoid NSAIDs renal dose we will follow recommendations from hand umbrella tipper's. PRN: MEDICATIONS Tylenol 650 mg po every 4 hrs for fever zofran 4 mg IV every 6 hrs for n/v Hydralazine 5 mg IV every 4 hrs systolic pressure > 160 bowel regiment: lactulose 20 gm PO BID PRN constipation Pain management: Morphine2 mg IV every 4 hours OK [place] my/25 p.o. every 6 hours Supportive measures: DVT ppx, GI ppx all questions answered Supervising MD: Dr. Betsy Connolly c/d This document was generated in part using voice recognition software, occasional wrong word or sound alike substitutions may have occurred due to the inherent limitations of voice recognition software. Read the chart carefully and recognize using context, where the substitutions have occurred. Although every effort was made to edit the content, material assistant and typing errors may occur ATTESTATION BY PHYSICIAN I have seen and examined the patient. I reviewed the documentation, medical decision making, and treatment plan as noted by the mid-level provider above. I agree with the findings and plan of care. Dayami Schreiber MD, ELIZABETH NP Aug 18, 2024 09:45
[2024-08-18] MEDS ORDERED: IOHEXOL-350 75 ML VIAL IV ONE (10:34)
[2024-08-18] MEDS: PoTASSium chloRIDE 20MEQ ER 20 MEQ ERTAB PO ONE (12:46)
--- NOTE | 2024-08-18 14:41 | HMCIMG ---
CT ABDOMEN/PELVIS W/CONTRAST CLINICAL HISTORY: repeat CT scan to evaluate abscess formation. COMPARISON: 08/15/2024 TECHNIQUE: Sequential axial images of abdomen and pelvis with 75 mL of Omnipaque 350 IV contrast with sagittal and coronal reconstructions. CT was performed with one or more of the following dose reduction techniques: automated exposure control, adjustment of the mA and/or kV according to patient size, or use of iterative reconstruction technique. FINDINGS: Lung bases clear. Liver spleen gallbladder pancreas and adrenal glands and kidneys and bladder are unremarkable. Again demonstrated is findings most consistent with acute diverticulitis. There is worsening inflammatory change in the bowel as well as interval increase in size of the developing abscess demonstrated best on image 66 of series 2 with a maximum anterior posterior dimension of 5 cm and a maximum width of 3.7 cm. This is partially involving bowel wall and partially encased by bowel. There is small air bubble demonstrated within the fluid collection. Initially demonstrated is a second abscess demonstrated within the mesentery that measures 3.1 cm and is demonstrated best on image 57 of series 2. There is no identified free air or free fluid. The sigmoid colon demonstrates persistent extensive inflammatory change as does the small bowel in the pelvis associated with the abscess. The bony structures stable. IMPRESSION: Worsening inflammatory changes associated with the sigmoid diverticulitis as well as enlarging pelvic abscesses. The larger of the 2 involves bowel and is partially encased by bowel. The smaller of the 2 is inaccessible percutaneously due to surrounding bowel.
--- NOTE | 2024-08-18 17:32 | PN ---
INFECTIOUS DISEASE PROGRESS NOTE Date of Service: Aug 18, 2024 SUBJECTIVE: Old male patient is being seen today at bedside. Awake, alert and oriented x3. patient remains on Zosyn tolerating well. At this time he denies any abdominal discomfort, no nausea or vomiting. States he had an episode a diarrhea. Terribly albumin and pelvis was done this morning pending results, to rule out any abscess. Acute events are being reported during the visit. PHYSICAL EXAM EYES: Anicteric. Pupils equal and reactive. HENT: No oral thrush seen, moist Oral mucosa NECK: Supple, no JVD or thyromegaly. LUNGS: Good air entry. No rales, no rhonchi. CARDIOVASCULAR: S1, S2 regular. No murmur heard. ABDOMEN: Soft, non tender, bowel sounds present, no organomegaly CENTRAL NERVOUS SYSTEM: Awake, alert, oriented x 3. No focal deficits. SKIN: No rashes, no swelling. LYMPHATICS: No peripheral lymphadenopathy MUSCULOSKELETAL: No joint swelling, erythema or tenderness. EXTREMITIES: No cyanosis or clubbing BACK: No deformity, no pressure ulcer. GENITOURINARY: No dysuria or hematuria Vital Sign (Last 12 Hours) 08/18/24 08/18/24 08/18/24 08/18/24 08:00 08:00 11:00 16:00 Temp 99.7 99.0 98.2 Pulse 61 61 75 Resp 17 17 17 B/P (MAP) 128/80 112/70 126/84 Pulse Ox 97 98 94 O2 Delivery Room Air* Room Air Room Air Room Air O2 Flow Rate 0 FiO2 21 Intake & Output (last 24hrs) 08/17/24 08/17/24 08/18/24 15:00 23:00 07:00 Intake Total 500 ml 840.0 ml Balance 500 ml 840.0 ml LABS: Laboratory: Test 08/18/24 04:14 Range/Units White Blood Count 5.0 4.8-10.8 K/uL Red Blood Count 3.83 L 4.50-6.20 MIL/uL Hemoglobin 12.5 L 14.0-18.0 g/dL Hematocrit 36.6 L 42-54 % Mean Corpuscular Volume 95.6 79-99 fL Mean Corpuscular Hemoglobin 32.6 27.0-33.0 pg Mean Corpuscular Hemoglobin Concent 34.2 32.0-36.0 g/dL Red Cell Distribution Width 13.9 11.0-15.5 % Platelet Count 169 130-400 K/uL Mean Platelet Volume 11.3 H 7.5-10.5 fL Immature Granulocyte % (Auto) 0.6 0-1 % Neutrophils (%) (Auto) 60.1 40.0-77.0 % Lymphocytes (%) (Auto) 26.3 21.0-51.0 % Monocytes (%) (Auto) 10.2 3.0-13.0 % Eosinophils (%) (Auto) 2.4 0.0-8.0 % Basophils (%) (Auto) 0.4 0.0-5.0 % Neutrophils # (Auto) 3.0 1.8-7.7 K/uL Lymphocytes # (Auto) 1.3 1.0-4.8 K/uL Monocytes # (Auto) 0.5 0.1-1.0 K/uL Eosinophils # (Auto) 0.12 0.00-0.70 K/uL Basophils # (Auto) 0.02 0.00-0.20 K/uL Absolute Immature Granulocyte (auto 0.03 0-1 K/uL Segmented Neutrophils % 59 40-70 % Lymphocytes % (Manual) 24 22-44 % Monocytes % (Manual) 14 H 2-9 % Eosinophils % (Manual) 2 1-6 % Basophils % (Manual) 1 0-2 % Nucleated Red Blood Cells 0.0 0.0-0.19 % Differential Comment MANUAL DIFFERENTIAL White Cell Morphology Comment Platelet Morphology Comment ADEQUATE Red Blood Cell Morphology ANISO 1+ Sodium Level 135 L 136-145 mmol/L Potassium Level 3.2 L 3.5-5.1 mmol/L Chloride Level 99 L 101-111 mmol/L Carbon Dioxide Level 24 21-32 mmol/L Blood Urea Nitrogen 6 L 7-18 mg/dL Creatinine 0.8 0.5-1.3 mg/dL Glomerular Filtration Rate Calc 114 >90 mL/min Random Glucose 90 70-105 mg/dL Total Calcium 8.5 8.5-10.1 mg/dL Magnesium Level 1.90 1.80-2.40 mg/dL Total Bilirubin 1.4 H 0.2-1.0 mg/dL Aspartate Amino Transf (AST/SGOT) 46 H 10-37 U/L Alanine Aminotransferase (ALT/SGPT) 43 12-78 U/L Alkaline Phosphatase 148 H 50-136 U/L C-Reactive Protein, Quantitative 134.70 H 0.5-3.0 mg/L Total Protein 7.4 6.0-8.3 g/dL Albumin 2.6 L 3.5-5.0 g/dL Procalcitonin 0.66 H 0.05-0.5 ng/mL ASSESSMENT: 43-year-old male patient recurrent problems which include: Acute diverticulitis Abdominal pain Morbid obesity PLAN: Continue Zosyn Pending abdominal CT scan results Continue pain management Monitor electrolytes Continue fall precaution Case has been discussed with my supervising physician Dr. Trammell. Plan of care has been discussed and agreed upon. FLOR LAO Aug 18, 2024 17:32
--- NOTE | 2024-08-18 19:34 | NUR ---
dr menon CAME BY TO SEE PATIENT , REVIEWED UPDATED CTABD . NEW ORDER GIVEN FOR GI SOFT DIET FOR AM
[2024-08-19] VITALS: BP 144/84; PULSE 62; RESP 20; TEMP 97.5
[2024-08-19 04:00] VITALS: BP 123/70; PULSE 71; RESP 20; TEMP 98.3
[2024-08-19 04:59] LABS: BASOPHILS # (AUTO) 0.03 K/uL (0.00-0.20); BASOPHILS % (AUTO) 0.6 % (0.0-5.0); EOSINOPHILS % (AUTO) 1.9 % (0.0-8.0); HEMATOCRIT 38.5 % (42-54); IMMATURE GRANULOCYTE ABSOLUTE 0.03 K/uL (0-1); LYMPHOCYTES # (AUTO) 1.4 K/uL (1.0-4.8); LYMPHOCYTES % (AUTO) 26.5 % (21.0-51.0); MEAN CORPUSCULAR HEMOGLOBIN 32.7 pg (27.0-33.0); MEAN CORPUSCULAR HGB CONC 33.8 g/dL (32.0-36.0); MONOCYTES # (AUTO) 0.6 K/uL (0.1-1.0); MONOCYTES % (AUTO) 11.3 % (3.0-13.0); NEUTROPHILS # (AUTO) 3.2 K/uL (1.8-7.7); NEUTROPHILS % (AUTO) 59.1 % (40.0-77.0); PLATELET COUNT (AUTO) 203 K/uL (130-400); RED BLOOD CELL COUNT(AUTO) 3.97 MIL/uL (4.50-6.20); RED CELL DISTRIBUTION WIDTH 13.9 % (11.0-15.5); WHITE BLOOD COUNT (AUTO) 5.4 K/uL (4.8-10.8)
[2024-08-19 05:20] LABS: ALBUMIN 2.7 g/dL (3.5-5.0); CREATININE 0.9 mg/dL (0.5-1.3); POTASSIUM 3.7 mmol/L (3.5-5.1); TOTAL PROTEIN, SERUM 7.6 g/dL (6.0-8.3)
[2024-08-19 08:00] VITALS: BP 133/75; PULSE 59; RESP 16; TEMP 98.3; O2SAT 93
[2024-08-19 12:00] VITALS: BP 115/66; PULSE 73; RESP 18; TEMP 98.4
--- NOTE | 2024-08-19 12:13 | PN ---
[facility] PROGRESS NOTE Date of Service: Aug 19, 2024 Time of Service: 12:08 SUBJECTIVE: [ ] This is a 43-year-old male was admitted yesterday 08/14/2024 presents in ER with chief complaints of abdominal pain. ER workup showed diverticulosis there is a sigmoid colon wall thickening with adjustment fat stranding suspicious for acute diverticulitis. General surgeon was consulted we will follow recommendation patient is currently on IV antibiotics IV fluids and pain management. Patient remains in ED holding patient is fully awake alert oriented x3. 08/16/24 patient was evaluated per surgeon concerns of diverticular perforation w ith abscess is scheduled for IR for percutaneous drain. Patient afebrile continues with abdominal pain NPO we will bring ID for antibiotics stewardship. 08/17/24 patient is doing well started on clear liquid diet I are for drainage was unsuccessful given to location continues on IV antibiotics surgeon we will repeat CT abdomen several days. Patient continues to request pain medication for pain. 08/18/24 patient is fully awake alert oriented x3 continues with abdominal pain was started on p.o. [place]. Appreciate ID input repeat CT scan to rule out abscess formation. Continues IV antibiotics tolerating well. 08/19/24 patient is lying in bed patient reports pain is dull location abdomen. No reports of nausea and vomiting waiting for ID final recommendation deescalate antibiotics. REVIEW OF SYSTEMS CONSTITUTIONAL: Denies fevers, chills, or night sweats. No unintentional weight loss reported. NEUROLOGICAL: Denies headache, amaurosis fugax, motor weakness, sensory deficit, vertigo/spinning sensation, gait abnormalities, or tremors. ENT: No hearing loss, otalgia, otorrhea, rhinitis, rhinorrhea, hoarseness, or sore throat. CARDIOVASCULAR: Denies any exertional angina, dyspnea on exertion, orthopnea, paroxysmal nocturnal dyspnea, palpitations, life-threatening arrhythmias, claudication. PULMONARY: Denies any shortness of breath, cough, phlegm/sputum, hemoptysis, pleuritic chest pain. SLEEP: Denies morning headaches, daytime somnolence or napping. Denies difficulty falling asleep, staying asleep, waking from sleep. Denies knowledge of snoring. GASTROINTESTINAL: Denies any type of dysphagia to either liquids or solids. Denies nausea, vomiting, pyrosis, early satiety, abdominal pain, diarrhea, con stipation, or changes in stool consistency or caliber. Denies coffee-ground emesis, hematemesis, hematochezia, or melanotic stools. GENITOURINARY: Denies frequency, urgency, nocturia, hematuria or incontinence (Storage/Irritative symptoms.) Low urinary stream, straining to void, urinary intermittency or hesitancy, splitting of the voiding stream, terminal dribbling. ENDOCRINOLOGIC: Denies polyuria, polydipsia, polyphagia or heat/cold intolerances. HEMATOLOGIC: Denies thrombophilia/previous clots, or coagulopathy/bleeding disorders. ONCOLOGIC: Denies personal history of malignancy. DERMATOLOGIC: Denies rashes or pruritus. PSYCHIATRIC: Denies any suicidal or homicidal ideation. Denies hallucinations. PHYSICAL EXAM GENERAL APPEARANCE: The patient is awake, alert, and oriented, in no acute card iopulmonary distress. NEUROLOGICAL: Cranial nerves II-XII grossly intact. Motor is 5/5 in bilateral upper and lower extremities proximal to distal. No sensory deficits. HEENT: Face is symmetric. Pupils are equal and reactive. Extraocular movements are intact. NECK: Supple. No JVD. No thyromegaly. No submental, submandibular, pre- /postauricular, occipital or supraclavicular lymphadenopathy. CHEST: Normal chest expansion. No Telemetry. LUNGS: Absence of any rales, rhonchi or any wheezing. CARDIOVASCULAR: Regular. S1 and S2 normal. No appreciable rubs, murmurs or gallops. ABDOMEN: Soft, nontender, and nondistended. There is no rebound, voluntary guarding, or rigidity. : Deferred. No Velez. EXTREMITIES: Non-edematous and not cyanotic. No clubbing. Good capillary refill. SKIN: No skin breakdown. Vital Signs (last 8hr) Date Time Temp Pulse Resp B/P (MAP) Pulse Ox O2 Delivery O2 Flow Rate FiO2 08/19/24 08:00 93 Room Air* 0 21 08/19/24 08:00 98.2 59 16 133/75 93 Room Air LABS: Laboratory: Test 08/19/24 04:45 08/18/24 04:14 Range/Units White Blood Count 5.4 4.8-10.8 K/uL Red Blood Count 3.97 L 4.50-6.20 MIL/uL Hemoglobin 13.0 L 14.0-18.0 g/dL Hematocrit 38.5 L 42-54 % Mean Corpuscular Volume 97.0 79-99 fL Mean Corpuscular Hemoglobin 32.7 27.0-33.0 pg Mean Corpuscular Hemoglobin Concent 33.8 32.0-36.0 g/dL Red Cell Distribution Width 13.9 11.0-15.5 % Platelet Count 203 130-400 K/uL Mean Platelet Volume 11.1 H 7.5-10.5 fL Immature Granulocyte % (Auto) 0.6 0-1 % Neutrophils (%) (Auto) 59.1 40.0-77.0 % Lymphocytes (%) (Auto) 26.5 21.0-51.0 % Monocytes (%) (Auto) 11.3 3.0-13.0 % Eosinophils (%) (Auto) 1.9 0.0-8.0 % Basophils (%) (Auto) 0.6 0.0-5.0 % Neutrophils # (Auto) 3.2 1.8-7.7 K/uL Lymphocytes # (Auto) 1.4 1.0-4.8 K/uL Monocytes # (Auto) 0.6 0.1-1.0 K/uL Eosinophils # (Auto) 0.10 0.00-0.70 K/uL Basophils # (Auto) 0.03 0.00-0.20 K/uL Absolute Immature Granulocyte (auto 0.03 0-1 K/uL Nucleated Red Blood Cells 0.0 0.0-0.19 % Sodium Level 137 136-145 mmol/L Potassium Level 3.7 3.5-5.1 mmol/L Chloride Level 100 L 101-111 mmol/L Carbon Dioxide Level 26 21-32 mmol/L Blood Urea Nitrogen 4 L 7-18 mg/dL Creatinine 0.9 0.5-1.3 mg/dL Glomerular Filtration Rate Calc 110 >90 mL/min Random Glucose 90 70-105 mg/dL Total Calcium 8.9 8.5-10.1 mg/dL Magnesium Level 2.00 1.80-2.40 mg/dL Total Bilirubin 1.0 0.2-1.0 mg/dL Aspartate Amino Transf (AST/SGOT) 38 H 10-37 U/L Alanine Aminotransferase (ALT/SGPT) 44 12-78 U/L Alkaline Phosphatase 176 H 50-136 U/L Total Protein 7.6 6.0-8.3 g/dL Albumin 2.7 L 3.5-5.0 g/dL Segmented Neutrophils % 59 40-70 % Lymphocytes % (Manual) 24 22-44 % Monocytes % (Manual) 14 H 2-9 % Eosinophils % (Manual) 2 1-6 % Basophils % (Manual) 1 0-2 % Differential Comment MANUAL DIFFERENTIAL White Cell Morphology Comment Platelet Morphology Comment ADEQUATE Red Blood Cell Morphology ANISO 1+ C-Reactive Protein, Quantitative 134.70 H 0.5-3.0 mg/L Procalcitonin 0.66 H 0.05-0.5 ng/mL Current Medications Medications (Trade) Dose Ordered Sig/Bernarda Route PRN Reason Start Time Stop Time Status Last Admin Dose Admin Acetaminophen (TYLenol 650MG SUPPOSITORY) 650 mg Q6H PRN RC MILD PAIN (1-3) 08/15/24 03:30 09/14/24 03:29 Acetaminophen/ Hydrocodone Bitart (NORco 5/325MG) 1 tab Q6H PRN PO MODERATE PAIN (4-6) 08/17/24 16:00 08/22/24 15:59 08/18/24 09:16 1 TAB Famotidine (Pepcid 20mg Vial) 20 mg DAILY IV 08/15/24 09:00 08/15/24 03:31 DC Hydralazine HCl (APRESOLine 20MG INJ) 10 mg Q6H PRN IV For:SBP above 160;DBP above 90 08/15/24 03:30 09/14/24 03:29 Lactated Ringer's 1,000 ml @ 75 mls/hr [id number] IV 08/15/24 03:30 09/14/24 03:29 08/18/24 23:59 75 MLS/HR Lactulose (Constulose 20gm/ 30ml Udcup) 20 gm BID PRN PO CONSTIPATION 08/17/24 12:30 09/16/24 12:29 Magnesium Sulfate 50 ml @ 0 mls/hr PROTOCOL PRN IV Low magnesium level 08/15/24 09:00 09/14/24 08:59 08/18/24 06:34 25 MLS/HR Morphine Sulfate (morPHINE 4MG SYG) 4 mg Q4H PRN IVP SEVERE PAIN (7-10) 08/15/24 03:30 08/22/24 03:29 08/18/24 04:20 4 MG Ondansetron HCl (zoFRAN 4MG INJ) 4 mg Q6H PRN IV NAUSEA/VOMITING 08/15/24 03:30 09/14/24 03:29 Pantoprazole Sodium (PROTonix 40MG INJ) 40 mg DAILY IVP 08/15/24 09:00 09/14/24 08:59 08/19/24 09:35 40 MG Piperacillin Sod/ Tazobactam Sod (Zosyn 3.375gm+NS 50ml) 3.375 gm Q12H IV 08/15/24 14:30 08/25/24 14:29 08/19/24 01:33 3.375 GM Potassium Chloride 100 ml @ 50 mls/hr AD PRN IV POTASSIUM PROTOCOL 08/15/24 03:30 08/15/24 08:51 DC 08/15/24 03:58 50 MLS/HR Potassium Chloride 100 ml @ 50 mls/hr AD PRN IV POTASSIUM PROTOCOL 08/15/24 09:00 09/14/24 08:59 08/16/24 05:11 50 MLS/HR DIAGNOSTICS / RADIOLOGY: [ ] ASSESSMENT: Sepsis secondary to intraabdominal abscess POA Possible sepsis poa acute diverticulitis, POA, by CT on 08/15/2024 Possible diverticular perforation with abscess POA unsuccessful IR drainage intractable abd pain secondary to abd abscess POA ABE, ATN POA Electrolyte derangement hypokalemia hyponatremia Obesity BMI 34.0 POA PLAN: [ ] Admit: Medical-surgical floor condition: Guarded Status: Full code IVF: NS at 75 ml/hr Diet: GI soft Consultants general surgeon, [facility] [employer] Antibiotics: Zosyn IV every 12hours renal dose, Test:repeat CT scan abdomen noted, blood culture so far negative Labs cbc, cmp, mag+ in am. Replace electrolytes as needed as per protocol to keep potassium above 4.0 magnesium 2.0. Avoid NSAIDs renal dose we will follow recommendations from [facility] [employer]. PRN: MEDICATIONS Tylenol 650 mg po every 4 hrs for fever zofran 4 mg IV every 6 hrs for n/v Hydralazine 5 mg IV every 4 hrs systolic pressure > 160 bowel regiment: lactulose 20 gm PO BID PRN constipation Pain management: Morphine2 mg IV every 4 hours OK [place] my/25 p.o. every 6 hours Supportive measures: DVT ppx, GI ppx all questions answered Supervising MD: Dr. Betsy Connolly c/d This document was generated in part using voice recognition software, occasional wrong word or sound alike substitutions may have occurred due to the inherent limitations of voice recognition software. Read the chart carefully and recognize using context, where the substitutions have occurred. Although every effort was made to edit the content, multiple slide operator and typing errors may occur ATTESTATION BY PHYSICIAN I have seen and examined the patient. I reviewed the documentation, medical decision making, and treatment plan as noted by the mid-level provider above. I agree with the findings and plan of care. Dayami Schreiber MD, ELIZABETH NP Aug 19, 2024 12:13
[2024-08-19 16:00] VITALS: BP 129/67; PULSE 78; RESP 18; TEMP 97.8
--- NOTE | 2024-08-19 16:13 | PN ---
Patient continues having no pain. Tolerating diet. He is afebrile. White count is normal. Recent CT shows that there was a worsening inflammation and there were abscesses that were not possible to reach to the interventional radiologist. I think that if the patient continues to improve and he is without pain he could be discharged in the next couple of days with p.o. antibiotics. I recommend to do a CT scan of the abdomen to follow-up the evolution of those abscesses. Vitals/Labs Vital Signs Date Time Temp Pulse Resp B/P (MAP) Pulse Ox O2 Delivery O2 Flow Rate FiO2 08/19/24 16:00 97.9 78 18 129/67 90 Room Air 08/19/24 08:00 0 21 Laboratory Tests 08/19/24 04:45 OREN SELBY MD Aug 19, 2024 16:13
--- NOTE | 2024-08-19 18:03 | PN ---
INFECTIOUS DISEASE PROGRESS NOTE Date of Service: Aug 19, 2024 SUBJECTIVE: This is a 43-year-old male patient who was admitted with chief complaint of abdominal pain. A CT of the abdomen done on admission showed possible small abscess collection with tiny air collection in the pelvis measuring 4.4 x 4.3 cm with concerns of diverticular perforation and the reason for this consult. Patient was seen and examined at bedside in room 408. Patient is awake, alert and oriented x 3. Patient is afebrile, temperature is 98.2 and the WBC is 5.4. No growth reported yet on the blood cultures. Patient had a repeat CT of the abdomen and pelvis done on 08/17/2024 which showed worsening sigmoid diverticulitis as well as enlarging pelvic abscess. General surgery following patient. Patient voiced slight tenderness mostly to the lower abdomen area. Patient's diet has been advanced to GI soft and no reports of nausea and vomiting. Will continue on Zosyn. We will continue to follow patient's care. PHYSICAL EXAM EYES: Anicteric. Pupils equal and reactive. HENT: No oral thrush seen, moist Oral mucosa. NECK: Supple, no JVD or thyromegaly. LUNGS: Good air entry. No rales, no rhonchi. CARDIOVASCULAR: S1, S2 regular. No murmur heard. ABDOMEN: Soft, non tender, bowel sounds present, no organomegaly. Abdominal pain POA, resolving. CENTRAL NERVOUS SYSTEM: Awake, alert, oriented x 3. SKIN: No rashes, no swelling. LYMPHATICS: No peripheral lymphadenopathy. MUSCULOSKELETAL: No joint swelling, erythema or tenderness. EXTREMITIES: No cyanosis or clubbing. BACK: No deformity, no pressure ulcer. GENITOURINARY: No dysuria or hematuria. Vital Sign (Last 12 Hours) 08/19/24 08/19/24 08/19/24 08/19/24 08:00 08:00 12:00 16:00 Temp 98.2 98.4 97.9 Pulse 59 73 78 Resp 16 18 18 B/P (MAP) 133/75 115/66 129/67 Pulse Ox 93 93 96 90 O2 Delivery Room Air Room Air* Room Air Room Air O2 Flow Rate 0 FiO2 21 Intake & Output (last 24hrs) 08/18/24 08/18/24 08/19/24 15:00 23:00 07:00 Intake Total 900.0 ml Output Total 750 ml Balance 150.0 ml LABS: Laboratory: Test 08/19/24 04:45 08/18/24 04:14 Range/Units White Blood Count 5.4 4.8-10.8 K/uL Red Blood Count 3.97 L 4.50-6.20 MIL/uL Hemoglobin 13.0 L 14.0-18.0 g/dL Hematocrit 38.5 L 42-54 % Mean Corpuscular Volume 97.0 79-99 fL Mean Corpuscular Hemoglobin 32.7 27.0-33.0 pg Mean Corpuscular Hemoglobin Concent 33.8 32.0-36.0 g/dL Red Cell Distribution Width 13.9 11.0-15.5 % Platelet Count 203 130-400 K/uL Mean Platelet Volume 11.1 H 7.5-10.5 fL Immature Granulocyte % (Auto) 0.6 0-1 % Neutrophils (%) (Auto) 59.1 40.0-77.0 % Lymphocytes (%) (Auto) 26.5 21.0-51.0 % Monocytes (%) (Auto) 11.3 3.0-13.0 % Eosinophils (%) (Auto) 1.9 0.0-8.0 % Basophils (%) (Auto) 0.6 0.0-5.0 % Neutrophils # (Auto) 3.2 1.8-7.7 K/uL Lymphocytes # (Auto) 1.4 1.0-4.8 K/uL Monocytes # (Auto) 0.6 0.1-1.0 K/uL Eosinophils # (Auto) 0.10 0.00-0.70 K/uL Basophils # (Auto) 0.03 0.00-0.20 K/uL Absolute Immature Granulocyte (auto 0.03 0-1 K/uL Nucleated Red Blood Cells 0.0 0.0-0.19 % Sodium Level 137 136-145 mmol/L Potassium Level 3.7 3.5-5.1 mmol/L Chloride Level 100 L 101-111 mmol/L Carbon Dioxide Level 26 21-32 mmol/L Blood Urea Nitrogen 4 L 7-18 mg/dL Creatinine 0.9 0.5-1.3 mg/dL Glomerular Filtration Rate Calc 110 >90 mL/min Random Glucose 90 70-105 mg/dL Total Calcium 8.9 8.5-10.1 mg/dL Magnesium Level 2.00 1.80-2.40 mg/dL Total Bilirubin 1.0 0.2-1.0 mg/dL Aspartate Amino Transf (AST/SGOT) 38 H 10-37 U/L Alanine Aminotransferase (ALT/SGPT) 44 12-78 U/L Alkaline Phosphatase 176 H 50-136 U/L Total Protein 7.6 6.0-8.3 g/dL Albumin 2.7 L 3.5-5.0 g/dL Segmented Neutrophils % 59 40-70 % Lymphocytes % (Manual) 24 22-44 % Monocytes % (Manual) 14 H 2-9 % Eosinophils % (Manual) 2 1-6 % Basophils % (Manual) 1 0-2 % Differential Comment MANUAL DIFFERENTIAL White Cell Morphology Comment Platelet Morphology Comment ADEQUATE Red Blood Cell Morphology ANISO 1+ C-Reactive Protein, Quantitative 134.70 H 0.5-3.0 mg/L Procalcitonin 0.66 H 0.05-0.5 ng/mL ASSESSMENT: Acute diverticulitis. Possible pelvic abscess on CT scan. Abdominal pain. Morbid obesity. PLAN: Continue Zosyn. Continue pain management. Continue GI prophylaxis. Will monitor electrolytes. This case was reviewed and discussed with my supervising physician and the above assessment and plan was formulated and agreed upon. ATTESTATION BY PHYSICIAN I have seen and examined the patient. I reviewed the documentation, medical decision making, and treatment plan as noted by the mid-level provider above. I agree with the findings and plan of care. BEATRIZ MCLEOD MD, MIRTA L [employer] Aug 19, 2024 18:03
[2024-08-19 20:00] VITALS: BP 110/74; PULSE 70; RESP 20; TEMP 98.3; O2SAT 94
[2024-08-20] VITALS: BP 115/82; PULSE 54; RESP 20; TEMP 98.5
[2024-08-20 04:00] VITALS: BP 128/80; PULSE 59; RESP 20; TEMP 98.3
[2024-08-20 08:00] VITALS: BP 128/87; PULSE 75; RESP 18; TEMP 98.5
[2024-08-20 09:00] VITALS: O2SAT 93
--- NOTE | 2024-08-20 09:23 | PN ---
[facility] PROGRESS NOTE Date of Service: Aug 20, 2024 Time of Service: 09:22 SUBJECTIVE: [ ] This is a 43-year-old male was admitted yesterday 08/14/2024 presents in ER with chief complaints of abdominal pain. ER workup showed diverticulosis there is a sigmoid colon wall thickening with adjustment fat stranding suspicious for acute diverticulitis. General surgeon was consulted we will follow recommendation patient is currently on IV antibiotics IV fluids and pain management. Patient remains in ED holding patient is fully awake alert oriented x3. 08/16/24 patient was evaluated per surgeon concerns of diverticular perforation with abscess is scheduled for IR for percutaneous drain. Patient afebrile continues with abdominal pain NPO we will bring ID for antibiotics stewardship. 08/17/24 patient is doing well started on clear liquid diet I are for drainage was unsuccessful given to location continues on IV antibiotics surgeon we will repeat CT abdomen several days. Patient continues to request pain medication for pain. 08/18/24 patient is fully awake alert oriented x3 continues with abdominal pain was started on p.o. [place]. Appreciate ID input repeat CT scan to rule out abscess formation. Continues IV antibiotics tolerating well. 08/19/24 patient is lying in bed patient reports pain is dull location abdomen. No reports of nausea and vomiting waiting for ID final recommendation deescalate antibiotics. REVIEW OF SYSTEMS CONSTITUTIONAL: Denies fevers, chills, or night sweats. No unintentional weight loss reported. NEUROLOGICAL: Denies headache, amaurosis fugax, motor weakness, sensory deficit, vertigo/spinning sensation, gait abnormalities, or tremors. ENT: No hearing loss, otalgia, otorrhea, rhinitis, rhinorrhea, hoarseness, or sore throat. CARDIOVASCULAR: Denies any exertional angina, dyspnea on exertion, orthopnea, paroxysmal nocturnal dyspnea, palpitations, life-threatening arrhythmias, claudication. PULMONARY: Denies any shortness of breath, cough, phlegm/sputum, hemoptysis, pleuritic chest pain. SLEEP: Denies morning headaches, daytime somnolence or napping. Denies difficulty falling asleep, staying asleep, waking from sleep. Denies knowledge of snoring. GASTROINTESTINAL: Denies any type of dysphagia to either liquids or solids. Denies nausea, vomiting, pyrosis, early satiety, abdominal pain, diarrhea, co nstipation, or changes in stool consistency or caliber. Denies coffee-ground emesis, hematemesis, hematochezia, or melanotic stools. GENITOURINARY: Denies frequency, urgency, nocturia, hematuria or incontinence (Storage/Irritative symptoms.) Low urinary stream, straining to void, urinary intermittency or hesitancy, splitting of the voiding stream, terminal dribbling. ENDOCRINOLOGIC: Denies polyuria, polydipsia, polyphagia or heat/cold intolerances. HEMATOLOGIC: Denies thrombophilia/previous clots, or coagulopathy/bleeding disorders. ONCOLOGIC: Denies personal history of malignancy. DERMATOLOGIC: Denies rashes or pruritus. PSYCHIATRIC: Denies any suicidal or homicidal ideation. Denies hallucinations. PHYSICAL EXAM GENERAL APPEARANCE: The patient is awake, alert, and oriented, in no acute car diopulmonary distress. NEUROLOGICAL: Cranial nerves II-XII grossly intact. Motor is 5/5 in bilateral upper and lower extremities proximal to distal. No sensory deficits. HEENT: Face is symmetric. Pupils are equal and reactive. Extraocular movements are intact. NECK: Supple. No JVD. No thyromegaly. No submental, submandibular, pre- /postauricular, occipital or supraclavicular lymphadenopathy. CHEST: Normal chest expansion. No Telemetry. LUNGS: Absence of any rales, rhonchi or any wheezing. CARDIOVASCULAR: Regular. S1 and S2 normal. No appreciable rubs, murmurs or gallops. ABDOMEN: Soft, nontender, and nondistended. There is no rebound, voluntary guarding, or rigidity. : Deferred. No Velez. EXTREMITIES: Non-edematous and not cyanotic. No clubbing. Good capillary refill. SKIN: No skin breakdown. Vital Signs (last 8hr) Date Time Temp Pulse Resp B/P (MAP) Pulse Ox O2 Delivery O2 Flow Rate FiO2 08/20/24 08:00 98.4 75 18 128/87 93 Room Air 08/20/24 04:00 98.2 59 20 128/80 93 Room Air LABS: Laboratory: Test 08/19/24 04:45 Range/Units White Blood Count 5.4 4.8-10.8 K/uL Red Blood Count 3.97 L 4.50-6.20 MIL/uL Hemoglobin 13.0 L 14.0-18.0 g/dL Hematocrit 38.5 L 42-54 % Mean Corpuscular Volume 97.0 79-99 fL Mean Corpuscular Hemoglobin 32.7 27.0-33.0 pg Mean Corpuscular Hemoglobin Concent 33.8 32.0-36.0 g/dL Red Cell Distribution Width 13.9 11.0-15.5 % Platelet Count 203 130-400 K/uL Mean Platelet Volume 11.1 H 7.5-10.5 fL Immature Granulocyte % (Auto) 0.6 0-1 % Neutrophils (%) (Auto) 59.1 40.0-77.0 % Lymphocytes (%) (Auto) 26.5 21.0-51.0 % Monocytes (%) (Auto) 11.3 3.0-13.0 % Eosinophils (%) (Auto) 1.9 0.0-8.0 % Basophils (%) (Auto) 0.6 0.0-5.0 % Neutrophils # (Auto) 3.2 1.8-7.7 K/uL Lymphocytes # (Auto) 1.4 1.0-4.8 K/uL Monocytes # (Auto) 0.6 0.1-1.0 K/uL Eosinophils # (Auto) 0.10 0.00-0.70 K/uL Basophils # (Auto) 0.03 0.00-0.20 K/uL Absolute Immature Granulocyte (auto 0.03 0-1 K/uL Nucleated Red Blood Cells 0.0 0.0-0.19 % Sodium Level 137 136-145 mmol/L Potassium Level 3.7 3.5-5.1 mmol/L Chloride Level 100 L 101-111 mmol/L Carbon Dioxide Level 26 21-32 mmol/L Blood Urea Nitrogen 4 L 7-18 mg/dL Creatinine 0.9 0.5-1.3 mg/dL Glomerular Filtration Rate Calc 110 >90 mL/min Random Glucose 90 70-105 mg/dL Total Calcium 8.9 8.5-10.1 mg/dL Magnesium Level 2.00 1.80-2.40 mg/dL Total Bilirubin 1.0 0.2-1.0 mg/dL Aspartate Amino Transf (AST/SGOT) 38 H 10-37 U/L Alanine Aminotransferase (ALT/SGPT) 44 12-78 U/L Alkaline Phosphatase 176 H 50-136 U/L Total Protein 7.6 6.0-8.3 g/dL Albumin 2.7 L 3.5-5.0 g/dL Current Medications Medications (Trade) Dose Ordered Sig/Bernarda Route PRN Reason Start Time Stop Time Status Last Admin Dose Admin Acetaminophen (TYLenol 650MG SUPPOSITORY) 650 mg Q6H PRN RC MILD PAIN (1-3) 08/15/24 03:30 09/14/24 03:29 Acetaminophen/ Hydrocodone Bitart (NORco 5/325MG) 1 tab Q6H PRN PO MODERATE PAIN (4-6) 08/17/24 16:00 08/22/24 15:59 08/18/24 09:16 1 TAB Famotidine (Pepcid 20mg Vial) 20 mg DAILY IV 08/15/24 09:00 08/15/24 03:31 DC Hydralazine HCl (APRESOLine 20MG INJ) 10 mg Q6H PRN IV For:SBP above 160;DBP above 90 08/15/24 03:30 09/14/24 03:29 Lactated Ringer's 1,000 ml @ 75 mls/hr [id number] IV 08/15/24 03:30 09/14/24 03:29 08/20/24 04:20 75 MLS/HR Lactulose (Constulose 20gm/ 30ml Udcup) 20 gm BID PRN PO CONSTIPATION 08/17/24 12:30 09/16/24 12:29 Magnesium Sulfate 50 ml @ 0 mls/hr PROTOCOL PRN IV Low magnesium level 08/15/24 09:00 09/14/24 08:59 08/18/24 06:34 25 MLS/HR Morphine Sulfate (morPHINE 4MG SYG) 4 mg Q4H PRN IVP SEVERE PAIN (7-10) 08/15/24 03:30 08/20/24 06:29 DC 08/18/24 04:20 4 MG Ondansetron HCl (zoFRAN 4MG INJ) 4 mg Q6H PRN IV NAUSEA/VOMITING 08/15/24 03:30 09/14/24 03:29 Pantoprazole Sodium (PROTonix 40MG INJ) 40 mg DAILY IVP 08/15/24 09:00 09/14/24 08:59 08/20/24 08:41 40 MG Piperacillin Sod/ Tazobactam Sod (Zosyn 3.375gm+NS 50ml) 3.375 gm Q12H IV 08/15/24 14:30 08/25/24 14:29 08/20/24 02:50 3.375 GM Potassium Chloride 100 ml @ 50 mls/hr AD PRN IV POTASSIUM PROTOCOL 08/15/24 03:30 08/15/24 08:51 DC 08/15/24 03:58 50 MLS/HR Potassium Chloride 100 ml @ 50 mls/hr AD PRN IV POTASSIUM PROTOCOL 08/15/24 09:00 09/14/24 08:59 08/16/24 05:11 50 MLS/HR DIAGNOSTICS / RADIOLOGY: [ ] ASSESSMENT: Sepsis secondary to intraabdominal abscess POA Possible sepsis poa acute diverticulitis, POA, by CT on 08/15/2024 Possible diverticular perforation with abscess POA unsuccessful IR drainage intractable abd pain secondary to abd abscess POA ABE, ATN POA Electrolyte derangement hypokalemia hyponatremia Obesity BMI 34.0 POA PLAN: [ ] Admit: Medical-surgical floor condition: Guarded Status: Full code IVF: NS at 75 ml/hr Diet: GI soft 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 Replace electrolytes as needed as per protocol to keep potassium above 4.0 magnesium 2.0. Avoid NSAIDs renal dose we will follow recommendations from water filterer helper's. PRN: MEDICATIONS Tylenol 650 mg po every 4 hrs for fever zofran 4 mg IV every 6 hrs for n/v Hydralazine 5 mg IV every 4 hrs systolic pressure > 160 bowel regiment: lactulose 20 gm PO BID PRN constipation Pain management: Morphine2 mg IV every 4 hours [place] my/25 p.o. every 6 hours Supportive measures: DVT ppx, GI ppx all questions answered Supervising MD: Dr. Betsy Connolly c/d This document was generated in part using voice recognition software, occasional wrong word or sound alike substitutions may have occurred due to the inherent limitations of voice recognition software. Read the chart carefully and recognize using context, where the substitutions have occurred. Although every effort was made to edit the content, farm operations manager and typing errors may occur NENA RUSSELL AGPCNP Aug 20, 2024 09:23
--- NOTE | 2024-08-20 09:33 | PN ---
Patient remains asymptomatic and tolerating diet. No fever. I recommend to have a CT scan before discharge. We will sign off the case for now. He will need a colonoscopy in six weeks Vitals/Labs Vital Signs Date Time Temp Pulse Resp B/P (MAP) Pulse Ox O2 Delivery O2 Flow Rate FiO2 08/20/24 08:00 98.4 75 18 128/87 93 Room Air 08/19/24 20:00 0 21 OREN SELBY MD Aug 20, 2024 09:33
[2024-08-20 12:00] VITALS: BP 126/79; PULSE 82; RESP 18; TEMP 98.5
--- NOTE | 2024-08-20 12:09 | PN ---
[facility] PROGRESS NOTE Date of Service: Aug 20, 2024 Time of Service: 12:06 SUBJECTIVE: [ ] This is a 43-year-old male was admitted yesterday 08/14/2024 presents in ER with chief complaints of abdominal pain. ER workup showed diverticulosis there is a sigmoid colon wall thickening with adjustment fat stranding suspicious for acute diverticulitis. General surgeon was consulted we will follow recommendation patient is currently on IV antibiotics IV fluids and pain management. Patient remains in ED holding patient is fully awake alert oriented x3. 08/16/24 patient was evaluated per surgeon concerns of diverticular perforation with abscess is scheduled for IR for percutaneous drain. Patient afebrile continues with abdominal pain NPO we will bring ID for antibiotics stewardship. 08/17/24 patient is doing well started on clear liquid diet I are for drainage was unsuccessful given to location continues on IV antibiotics surgeon we will repeat CT abdomen several days. Patient continues to request pain medication for pain. 08/18/24 patient is fully awake alert oriented x3 continues with abdominal pain was started on p.o. [place]. Appreciate ID input repeat CT scan to rule out abscess formation. Continues IV antibiotics tolerating well. 08/19/24 patient is lying in bed patient reports pain is dull location abdomen. No reports of nausea and vomiting waiting for ID final recommendation deescalate antibiotics. 08/20 patient was evaluated in the room. He offers no complaints. He is reporting tolerating diet. At this point, CT abdomen and pelvis from 08/18/2024 was reviewed. Showing enlarging pelvic abscess and worsening inflammatory [place] associated with sigmoid diverticulitis. As per recommendations from surgeon, to repeat CT abdomen and pelvis for which has been ordered. REVIEW OF SYSTEMS CONSTITUTIONAL: Denies fevers, chills, or night sweats. No unintentional weight loss reported. NEUROLOGICAL: Denies headache, amaurosis fugax, motor weakness, sensory deficit, vertigo/spinning sensation, gait abnormalities, or tremors. ENT: No hearing loss, otalgia, otorrhea, rhinitis, rhinorrhea, hoarseness, or sore throat. CARDIOVASCULAR: Denies any exertional angina, dyspnea on exertion, orthopnea, paroxysmal nocturnal dyspnea, palpitations, life-threatening arrhythmias, claudication. PULMONARY: Denies any shortness of breath, cough, phlegm/sputum, hemoptysis, pleuritic chest pain. SLEEP: Denies morning headaches, daytime somnolence or napping. Denies difficulty falling asleep, staying asleep, waking from sleep. Denies knowledge of snoring. GASTROINTESTINAL: Denies any type of dysphagia to either liquids or solids. Denies nausea, vomiting, pyrosis, early satiety, abdominal pain, diarrhea, constipation, or changes in stool consistency or caliber. Denies coffee-ground emesis, hematemesis, hematochezia, or melanotic stools. GENITOURINARY: Denies frequency, urgency, nocturia, hematuria or incontinence (Storage/Irritative symptoms.) Low urinary stream, straining to void, urinary intermittency or hesitancy, splitting of the voiding stream, terminal dribbling. ENDOCRINOLOGIC: Denies polyuria, polydipsia, polyphagia or heat/cold intolerances. HEMATOLOGIC: Denies thrombophilia/previous clots, or coagulopathy/bleeding disorders. ONCOLOGIC: Denies personal history of malignancy. DERMATOLOGIC: Denies rashes or pruritus. PSYCHIATRIC: Denies any suicidal or homicidal ideation. Denies hallucinations. PHYSICAL EXAM GENERAL APPEARANCE: The patient is awake, alert, and oriented, in no acute cardiopulmonary distress. NEUROLOGICAL: Cranial nerves II-XII grossly intact. Motor is 5/5 in bilateral upper and lower extremities proximal to distal. No sensory deficits. HEENT: Face is symmetric. Pupils are equal and reactive. Extraocular movements are intact. NECK: Supple. No JVD. No thyromegaly. No submental, submandibular, pre- /postauricular, occipital or supraclavicular lymphadenopathy. CHEST: Normal chest expansion. No Telemetry. LUNGS: Absence of any rales, rhonchi or any wheezing. CARDIOVASCULAR: Regular. S1 and S2 normal. No appreciable rubs, murmurs or gallops. ABDOMEN: Soft, nontender, and nondistended. There is no rebound, voluntary guarding, or rigidity. : Deferred. No Velez. EXTREMITIES: Non-edematous and not cyanotic. No clubbing. Good capillary refill. SKIN: No skin breakdown. Vital Signs (last 8hr) Date Time Temp Pulse Resp B/P (MAP) Pulse Ox O2 Delivery O2 Flow Rate FiO2 08/20/24 09:00 93 Room Air* 0 21 08/20/24 08:00 98.4 75 18 128/87 93 Room Air LABS: Laboratory: Test 08/19/24 04:45 Range/Units White Blood Count 5.4 4.8-10.8 K/uL Red Blood Count 3.97 L 4.50-6.20 MIL/uL Hemoglobin 13.0 L 14.0-18.0 g/dL Hematocrit 38.5 L 42-54 % Mean Corpuscular Volume 97.0 79-99 fL Mean Corpuscular Hemoglobin 32.7 27.0-33.0 pg Mean Corpuscular Hemoglobin Concent 33.8 32.0-36.0 g/dL Red Cell Distribution Width 13.9 11.0-15.5 % Platelet Count 203 130-400 K/uL Mean Platelet Volume 11.1 H 7.5-10.5 fL Immature Granulocyte % (Auto) 0.6 0-1 % Neutrophils (%) (Auto) 59.1 40.0-77.0 % Lymphocytes (%) (Auto) 26.5 21.0-51.0 % Monocytes (%) (Auto) 11.3 3.0-13.0 % Eosinophils (%) (Auto) 1.9 0.0-8.0 % Basophils (%) (Auto) 0.6 0.0-5.0 % Neutrophils # (Auto) 3.2 1.8-7.7 K/uL Lymphocytes # (Auto) 1.4 1.0-4.8 K/uL Monocytes # (Auto) 0.6 0.1-1.0 K/uL Eosinophils # (Auto) 0.10 0.00-0.70 K/uL Basophils # (Auto) 0.03 0.00-0.20 K/uL Absolute Immature Granulocyte (auto 0.03 0-1 K/uL Nucleated Red Blood Cells 0.0 0.0-0.19 % Sodium Level 137 136-145 mmol/L Potassium Level 3.7 3.5-5.1 mmol/L Chloride Level 100 L 101-111 mmol/L Carbon Dioxide Level 26 21-32 mmol/L Blood Urea Nitrogen 4 L 7-18 mg/dL Creatinine 0.9 0.5-1.3 mg/dL Glomerular Filtration Rate Calc 110 >90 mL/min Random Glucose 90 70-105 mg/dL Total Calcium 8.9 8.5-10.1 mg/dL Magnesium Level 2.00 1.80-2.40 mg/dL Total Bilirubin 1.0 0.2-1.0 mg/dL Aspartate Amino Transf (AST/SGOT) 38 H 10-37 U/L Alanine Aminotransferase (ALT/SGPT) 44 12-78 U/L Alkaline Phosphatase 176 H 50-136 U/L Total Protein 7.6 6.0-8.3 g/dL Albumin 2.7 L 3.5-5.0 g/dL Current Medications Medications (Trade) Dose Ordered Sig/Bernarda Route PRN Reason Start Time Stop Time Status Last Admin Dose Admin Acetaminophen (TYLenol 650MG SUPPOSITORY) 650 mg Q6H PRN RC MILD PAIN (1-3) 08/15/24 03:30 09/14/24 03:29 Acetaminophen/ Hydrocodone Bitart (NORco 5/325MG) 1 tab Q6H PRN PO MODERATE PAIN (4-6) 08/17/24 16:00 08/22/24 15:59 08/18/24 09:16 1 TAB Famotidine (Pepcid 20mg Vial) 20 mg DAILY IV 08/15/24 09:00 08/15/24 03:31 DC Hydralazine HCl (APRESOLine 20MG INJ) 10 mg Q6H PRN IV For:SBP above 160;DBP above 90 08/15/24 03:30 09/14/24 03:29 Lactated Ringer's 1,000 ml @ 75 mls/hr [id number] IV 08/15/24 03:30 09/14/24 03:29 08/20/24 04:20 75 MLS/HR Lactulose (Constulose 20gm/ 30ml Udcup) 20 gm BID PRN PO CONSTIPATION 08/17/24 12:30 09/16/24 12:29 Magnesium Sulfate 50 ml @ 0 mls/hr PROTOCOL PRN IV Low magnesium level 08/15/24 09:00 09/14/24 08:59 08/18/24 06:34 25 MLS/HR Morphine Sulfate (morPHINE 4MG SYG) 4 mg Q4H PRN IVP SEVERE PAIN (7-10) 08/15/24 03:30 08/20/24 06:29 DC 08/18/24 04:20 4 MG Ondansetron HCl (zoFRAN 4MG INJ) 4 mg Q6H PRN IV NAUSEA/VOMITING 08/15/24 03:30 09/14/24 03:29 Pantoprazole Sodium (PROTonix 40MG INJ) 40 mg DAILY IVP 08/15/24 09:00 09/14/24 08:59 08/20/24 08:41 40 MG Piperacillin Sod/ Tazobactam Sod (Zosyn 3.375gm+NS 50ml) 3.375 gm Q12H IV 08/15/24 14:30 08/25/24 14:29 08/20/24 02:50 3.375 GM Potassium Chloride 100 ml @ 50 mls/hr AD PRN IV POTASSIUM PROTOCOL 08/15/24 03:30 08/15/24 08:51 DC 08/15/24 03:58 50 MLS/HR Potassium Chloride 100 ml @ 50 mls/hr AD PRN IV POTASSIUM PROTOCOL 08/15/24 09:00 09/14/24 08:59 08/16/24 05:11 50 MLS/HR DIAGNOSTICS / RADIOLOGY: [ ] ASSESSMENT: Sepsis secondary to intraabdominal abscess POA- showing worsening inflammatory changes associated with sigmoid diverticulitis as well as enlarging pelvic abscess, recommendation is to repeat CT abdomen and pelvis today Possible sepsis poa acute diverticulitis, POA, by CT on 08/15/2024 Possible diverticular perforation with abscess POA unsuccessful IR drainage intractable abd pain secondary to abd abscess POA ABE, ATN POA Electrolyte derangement hypokalemia hyponatremia Obesity BMI 34.0 POA PLAN: [ ] Admit: Medical-surgical floor condition: Guarded Status: Full code IVF: NS at 75 ml/hr Diet: GI soft Consultants general surgeon, dance artist's Antibiotics: Zosyn IV every 12hours renal dose, Test: CT abdomen pelvis to be repeated, stat CBC CMP and Mag Labs cbc, cmp, mag+ in am. Replace electrolytes as needed as per protocol to keep potassium above 4.0 magnesium 2.0. Avoid NSAIDs renal dose we will follow recommendations from dance artist's. PRN: MEDICATIONS Tylenol 650 mg po every 4 hrs for fever zofran 4 mg IV every 6 hrs for n/v Hydralazine 5 mg IV every 4 hrs systolic pressure > 160 bowel regiment: lactulose 20 gm PO BID PRN constipation Pain management: Morphine2 mg IV every 4 hours [place] my/25 p.o. every 6 hours Supportive measures: DVT ppx, GI ppx all questions answered Supervising MD: Dr. Betsy Connolly c/d This document was generated in part using voice recognition software, occasional wrong word or sound alike substitutions may have occurred due to the inherent limitations of voice recognition software. Read the chart carefully and recognize using context, where the substitutions have occurred. Although every effort was made to edit the content, cloth handler and typing errors may occur ATTESTATION BY PHYSICIAN I have seen and examined the patient. I reviewed the documentation, medical decision making, and treatment plan as noted by the mid-level provider above. I agree with the findings and plan of care. Dayami Schreiber MD, [facility] Aug 20, 2024 12:09
[2024-08-20 14:01] LABS: HEMATOCRIT 39.8 % (42-54); MEAN CORPUSCULAR HEMOGLOBIN 32.3 pg (27.0-33.0); MEAN CORPUSCULAR HGB CONC 33.7 g/dL (32.0-36.0); MEAN CORPUSCULAR VOLUME 95.9 fL (79-99); RED BLOOD CELL COUNT(AUTO) 4.15 MIL/uL (4.50-6.20); RED CELL DISTRIBUTION WIDTH 13.8 % (11.0-15.5)
[2024-08-20 14:09] LABS: CREATININE 0.9 mg/dL (0.5-1.3); MAGNESIUM 2.2 mg/dL (1.80-2.40); POTASSIUM 3.6 mmol/L (3.5-5.1)
[2024-08-20] MEDS ORDERED: IOHEXOL 350 MG/ML 100ML INFUS..BTL IV ONE (15:26)
[2024-08-20 16:00] VITALS: BP 125/85; PULSE 67; RESP 18; TEMP 98.4
--- NOTE | 2024-08-20 16:10 | PN ---
INFECTIOUS DISEASE PROGRESS NOTE Date of Service: Aug 20, 2024 SUBJECTIVE: This is a 43-year-old male patient who was admitted with chief complaint of abdominal pain. A CT of the abdomen done on admission showed possible small abscess collection with tiny air collection in the pelvis measuring 4.4 x 4.3 cm with concerns of diverticular perforation and the reason for this consult. CT of the abdomen/pelvis was repeated on 08/18/2024 with findings of worsening inflammatory changes associated with the sigmoid diverticulitis as well as enlarging pelvic abscesses. Patient was seen and examined at bedside in room 408. Patient is awake, alert and oriented x 3. Patient will have a CT of the abdomen/pelvis repeated today to re-evaluate the pelvic abscess. General surgery following patient. Patient denying nausea or vomiting. Stated the abdominal pain is very minimal. Patient is afebrile, temperature is 98.4 and be WBC is 6.0 Today. Will continue on Zosyn. We will continue to follow patient's care. PHYSICAL EXAM EYES: Anicteric. Pupils equal and reactive. HENT: No oral thrush seen, moist Oral mucosa. NECK: Supple, no JVD or thyromegaly. LUNGS: Good air entry. No rales, no rhonchi. CARDIOVASCULAR: S1, S2 regular. No murmur heard. ABDOMEN: Soft, non tender, bowel sounds present, no organomegaly. Abdominal pain POA, resolving. CENTRAL NERVOUS SYSTEM: Awake, alert, oriented x 3. SKIN: No rashes, no swelling. LYMPHATICS: No peripheral lymphadenopathy. MUSCULOSKELETAL: No joint swelling, erythema or tenderness. EXTREMITIES: No cyanosis or clubbing. BACK: No deformity, no pressure ulcer. GENITOURINARY: No dysuria or hematuria. Vital Sign (Last 12 Hours) 08/20/24 08/20/24 08/20/24 08:00 09:00 12:00 Temp 98.4 98.4 Pulse 75 82 Resp 18 18 B/P (MAP) 128/87 126/79 Pulse Ox 93 93 94 O2 Delivery Room Air Room Air* Room Air O2 Flow Rate 0 FiO2 21 Intake & Output (last 24hrs) 08/19/24 08/19/24 08/20/24 15:00 23:00 07:00 Intake Total 950.0 ml Balance 950.0 ml LABS: Laboratory: Test 08/20/24 13:45 08/19/24 04:45 Range/Units White Blood Count 6.0 4.8-10.8 K/uL Red Blood Count 4.15 L 4.50-6.20 MIL/uL Hemoglobin 13.4 L 14.0-18.0 g/dL Hematocrit 39.8 L 42-54 % Mean Corpuscular Volume 95.9 79-99 fL Mean Corpuscular Hemoglobin 32.3 27.0-33.0 pg Mean Corpuscular Hemoglobin Concent 33.7 32.0-36.0 g/dL Red Cell Distribution Width 13.8 11.0-15.5 % Platelet Count 271 # 130-400 K/uL Mean Platelet Volume 11.3 H 7.5-10.5 fL Nucleated Red Blood Cells 0.0 0.0-0.19 % Sodium Level 139 136-145 mmol/L Potassium Level 3.6 3.5-5.1 mmol/L Chloride Level 101 101-111 mmol/L Carbon Dioxide Level 29 21-32 mmol/L Blood Urea Nitrogen 5 L 7-18 mg/dL Creatinine 0.9 0.5-1.3 mg/dL Glomerular Filtration Rate Calc 110 >90 mL/min Random Glucose 98 70-105 mg/dL Total Calcium 9.1 8.5-10.1 mg/dL Magnesium Level 2.20 1.80-2.40 mg/dL Immature Granulocyte % (Auto) 0.6 0-1 % Neutrophils (%) (Auto) 59.1 40.0-77.0 % Lymphocytes (%) (Auto) 26.5 21.0-51.0 % Monocytes (%) (Auto) 11.3 3.0-13.0 % Eosinophils (%) (Auto) 1.9 0.0-8.0 % Basophils (%) (Auto) 0.6 0.0-5.0 % Neutrophils # (Auto) 3.2 1.8-7.7 K/uL Lymphocytes # (Auto) 1.4 1.0-4.8 K/uL Monocytes # (Auto) 0.6 0.1-1.0 K/uL Eosinophils # (Auto) 0.10 0.00-0.70 K/uL Basophils # (Auto) 0.03 0.00-0.20 K/uL Absolute Immature Granulocyte (auto 0.03 0-1 K/uL Total Bilirubin 1.0 0.2-1.0 mg/dL Aspartate Amino Transf (AST/SGOT) 38 H 10-37 U/L Alanine Aminotransferase (ALT/SGPT) 44 12-78 U/L Alkaline Phosphatase 176 H 50-136 U/L Total Protein 7.6 6.0-8.3 g/dL Albumin 2.7 L 3.5-5.0 g/dL ASSESSMENT: Acute diverticulitis. Pelvic abscesses on CT scan. Abdominal pain, resolving. Morbid obesity. PLAN: Continue Zosyn. Patient is pending a repeat CT scan of the abdomen and pelvis for today to re- evaluate pelvic abscesses. Continue pain management. Continue GI prophylaxis. Will monitor electrolytes. This case was reviewed and discussed with my supervising physician and the above assessment and plan was formulated and agreed upon. ATTESTATION BY PHYSICIAN I have seen and examined the patient. I reviewed the documentation, medical decision making, and treatment plan as noted by the mid-level provider above. I agree with the findings and plan of care. BEATRIZ MCLEOD MD, [facility] Aug 20, 2024 16:10
--- NOTE | 2024-08-20 16:14 | HMCIMG ---
CT ABDOMEN/PELVIS W/WO CONTRAS HISTORY: Follow-up COMPARISON: 08/18/2024 TECHNIQUE: Multiple sequential axial images of the abdomen and pelvis were obtained from the dome of the diaphragm through symphysis pubis. Patient was given 100 cc of Omnipaque through intravenous route. Oral contrast was not given. FINDINGS: No pleural effusion is seen bilaterally. There is no evidence of parenchymal disease or pulmonary nodule of the visualized lower lungs. Degenerative changes of the thoracolumbar spine are present. The heart is not enlarged. Liver is enlarged measuring 21.4 cm with fatty changes. The liver, spleen, adrenal glands and pancreas are unremarkable. There is no evidence of hydronephrosis bilaterally. No evidence of renal stone is seen. Fecal material is seen in the colon. There are normal size retroperitoneal and mesenteric lymph nodes. No ascites is seen. There is diverticulosis. Sigmoid colon wall thickening is seen with wall thickening consistent with sigmoid diverticulitis. Mesenteric fat stranding is seen. Abscess collection is noted in the anterior pelvis measuring 5.5 x 6.6 cm with air collection and wall thickening. Walled off perforation is also seen with heterogeneous air collection adjacent to the sigmoid colon. No evidence of free intraperitoneal air is seen at this time. Pelvic sidewalls are symmetric bilaterally. There is moderately distended with wall thickening with adjacent fat stranding IMPRESSION: 1. There is diverticulosis. Sigmoid colon wall thickening is seen with wall thickening consistent with sigmoid diverticulitis. Mesenteric fat stranding is seen. Abscess collection is noted in the anterior pelvis measuring 5.5 x 6.6 cm with air collection and wall thickening. Walled off perforation is also seen with heterogeneous air collection adjacent to the sigmoid colon. No evidence of free intraperitoneal air is seen at this time. Findings were present on previous study grossly unchanged. CT was performed with one or more following dose reduction techniques: automated exposure control, adjustment of the mA and kv according to patient's size, or use of a iterative reconstruction technique.
--- NOTE | 2024-08-20 19:45 | NUR ---
PATIENT LEAVING AMA, CHARGE NURSE KYM SPOKE TO PATIENT. KATINA BRADLEY NP NOTIFIED. IV REMOVED. PATIENT WALKED DOWN WITH
--- NOTE | 2024-08-21 15:08 | DS ---
Discharge Summary Hospital Course Summary: 43-year-old male who presented to the emergency department with the abdominal pain, he was noted with sepsis, acute diverticulitis with abscess for which he was monitored closely by Infectious Disease who manage his IV antibiotic and general surgeon consulted due to diverticulitis and abscess. Unfortunately the abscess was noted/collection was noted in the place where it is in accessible percutaneously due to surrounding bowel. Initial plan is to continue with IV antibiotics until final recommendation received from Infectious Disease. CT abdomen and pelvis with contrast has been repeated were initially on 08/15/2024 it showed worsening inflammatory changes associated with sigmoid diverticulitis as well as enlarging pelvic abscesses. Larger of the two involves bowel and is partially encased by bowel. The smaller of the two is in accessible percutaneously due to surrounding bowel. The CT abdomen and pelvis with and without contrast was repeated yesterday 08/20/2023 for which results indicated there is a diverticulosis. Sigmoid colon wall thickening is seen with wall thickening consistent with sigmoid diverticulitis. Mesenteric fat stranding seen. Abscess collection is noted in the anterior pelvis measuring 5.5 x 6.6 cm with air collection and wall thickening. Bile duct perforation is also seen with heterogenous air collection adjacent to the sigmoid colon. No evidence of free intraperitoneal air seen at this time. Findings were present on previous study grossly unchanged. Unfortunately patient decided to leave against medical advice on 08/20/2024 in the evening for which he was not given any medications or antibiotics to continue at home. Note from nursing evidently educated p atient regarding leaving against medical advice but patient signed the paperwork after all. Advice patient to go back to the emergency department if his symptoms such as fever, body aches, abdominal pain arise. Sales Development Representative(s): General surgeon, Dr. Aaron Infectious Disease, Dr. Trammell Procedure(s): [place] [address] [place] [id number] IMAGING REPORT Signed PATIENT: KEEGAN GARCIA MR#: [id number] : 1980 SEX: M AGE: 43 LOCATION: [facility] ORDER 1206 STATUS: ADM IN REPORT#: [id number] SERVICE 1205 REASON: follow up/compparison on abscess ORDERING PHYSICIAN: NENA RUSSELL PROCEDURE: ABD PELWWO - CT ABDOMEN/PELVIS W/WO CONTRAS CT ABDOMEN/PELVIS W/WO CONTRAS HISTORY: Follow-up COMPARISON: 08/18/2024 TECHNIQUE: Multiple sequential axial images of the abdomen and pelvis were obtained from the dome of the diaphragm through symphysis pubis. Patient was given 100 cc of Omnipaque through intravenous route. Oral contrast was not given. FINDINGS: No pleural effusion is seen bilaterally. There is no evidence of parenchymal disease or pulmonary nodule of the visualized lower lungs. Degenerative changes of the thoracolumbar spine are present. The heart is not enlarged. Liver is enlarged measuring 21.4 cm with fatty changes. The liver, spleen, adrenal glands and pancreas are unremarkable. There is no evidence of hydronephrosis bilaterally. No evidence of renal stone is seen. Fecal material is seen in the colon. There are normal size retroperitoneal and mesenteric lymph nodes. No ascites is seen. There is diverticulosis. Sigmoid colon wall thickening is seen with wall thickening consistent with sigmoid diverticulitis. Mesenteric fat stranding is seen. Abscess collection is noted in the anterior pelvis measuring 5.5 x 6.6 cm with air collection and wall thickening. Walled off perforation is also seen with heterogeneous air collection adjacent to the sigmoid colon. No evidence of free intraperitoneal air is seen at this time. Pelvic sidewalls are symmetric bilaterally. There is moderately distended with wall thickening with adjacent fat stranding IMPRESSION: 1. There is diverticulosis. Sigmoid colon wall thickening is seen with wall thickening consistent with sigmoid diverticulitis. Mesenteric fat stranding is seen. Abscess collection is noted in the anterior pelvis measuring 5.5 x 6.6 cm with air collection and wall thickening. Walled off perforation is also seen with heterogeneous air collection adjacent to the sigmoid colon. No evidence of free intraperitoneal air is seen at this time. Findings were present on previous study grossly unchanged. CT was performed with one or more following dose reduction techniques: automated exposure control, adjustment of the mA and kv according to patient's size, or use of a iterative reconstruction technique. DICTATED BY: EVERETTE RIVERO MD DATE: 08/20/24 1605 ELECTRONICALLY SIGNED BY: EVERETTE RIVERO MD DATE: 08/20/24 1147 Assessment/Plan: Discharge Diagnoses Sepsis secondary to intraabdominal abscess POA- showing worsening inflammatory changes associated with sigmoid diverticulitis as well as enlarging pelvic abscess, recommendation is to repeat CT abdomen and pelvis today Abscess collection noted in the anterior pelvis measuring 5.5 x 6.6 cm with echo collection and we will thickening. Walled-off perforation is also seen with heterogenous collection adjacent to the sigmoid colon Possible sepsis poa Sigmoid colon wall thickening consistent with sigmoid diverticulitis by CT A/P with and without contrast on 08/20/2024 Acute diverticulitis, POA, by CT on 08/15/2024 Possible diverticular perforation with abscess POA unsuccessful IR drainage intractable abd pain secondary to abd abscess POA ABE, ATN POA Electrolyte derangement hypokalemia hyponatremia Obesity BMI 34.0 POA Discharge Instructions: Patient left against medical advice on 08/20/2024 Home Medications: No Active Prescriptions or Reported Meds Time spent arranging discharge: 31-60 minutes ATTESTATION BY PHYSICIAN I have seen and examined the patient. I reviewed the documentation, medical decision making, and treatment plan as noted by the mid-level provider above. I agree with the findings and plan of care. Dayami Schreiber MD, [facility] Aug 21, 2024 15:08
== END 2024-08-20 19:52 | disposition left against medical advice (07) | DRG 871 ==
LOC: EDH 18:58 → EDHIP 18:59 → 4BH 08-15 23:26
PROVIDERS: ADMIT Internal Medicine; ATTEND Internal Medicine
DX: A41.9 Sepsis, unspecified organism (principal); K65.1 Peritoneal abscess; K83.2 Perforation of bile duct; N17.0 Acute kidney failure with tubular necrosis; E87.1 Hypo-osmolality and hyponatremia; K57.20 Diverticulitis of large intestine with perforation and abscess without bleeding; E66.01 Morbid (severe) obesity due to excess calories; E87.6 Hypokalemia; E66.9 Obesity, unspecified; Z68.34 Body mass index [BMI] 34.0-34.9, adult; Z59.71 Insufficient health insurance coverage
CPT/HCPCS: 36415; 71045; 74177; 74178; 76770; 80048; 80053; 80076; 81001; 82570; 83605; 83690; 83735; 83935; 84100; 84145; 84300; 85025; 85027; 85610; 85730; 86140; 86850; 86900; 86901; 87040; 87426; 87804; 93005; 99285; G0378; J2270; J2405; J2470; J2543; J3370; J3475; J3480; J7030; J7120; Q9967